=== PATIENT | male | born 1945 | race Hispanic/Latino ===

== ENCOUNTER → 2023-07-05 | Outpatient (CLI) | payer OTHER | END | disposition home or self-care (01) | LOC: RAH 12:44 | PROVIDERS: ATTEND Family Medicine | DX: R13.10 Dysphagia, unspecified (principal) | CPT/HCPCS: 74230; 92610; 92611 ==

== ENCOUNTER 2024-09-15 08:13 | Inpatient (IN) | payer OTHER, MEDICARE ==
[2024-09-12 14:48] LABS: BASOPHILS # (AUTO) 0.02 K/uL (0.00-0.20); BASOPHILS % (AUTO) 0.4 % (0.0-5.0); EOSINOPHILS # (AUTO) 0.06 K/uL (0.00-0.70); EOSINOPHILS % (AUTO) 1.1 % (0.0-8.0); HEMATOCRIT 37.1 % (42-54); IMMATURE GRANULOCYTE ABSOLUTE 0.01 K/uL (0-1); LYMPHOCYTES # (AUTO) 1.6 K/uL (1.0-4.8); MEAN CORPUSCULAR HEMOGLOBIN 30.3 pg (27.0-33.0); MEAN CORPUSCULAR HGB CONC 32.9 g/dL (32.0-36.0); MEAN CORPUSCULAR VOLUME 92.3 fL (79-99); MONOCYTES # (AUTO) 0.5 K/uL (0.1-1.0); MONOCYTES % (AUTO) 9.5 % (3.0-13.0); NEUTROPHILS # (AUTO) 3.3 K/uL (1.8-7.7); NEUTROPHILS % (AUTO) 59.8 % (40.0-77.0); PLATELET COUNT (AUTO) 158 K/uL (130-400); RED BLOOD CELL COUNT(AUTO) 4.02 MIL/uL (4.50-6.20); RED CELL DISTRIBUTION WIDTH 13.6 % (11.0-15.5); WHITE BLOOD COUNT (AUTO) 5.6 K/uL (4.8-10.8)
[2024-09-12 14:51] LABS: APPEARANCE,URINE CLEAR (CLEAR); BILIRUBIN,URINE NEGATIVE (NEGATIVE); COLOR,URINE LIGHT-YELLOW (YELLOW); GLUCOSE, URINE (UA) NEGATIVE (NEGATIVE); KETONES,URINE NEGATIVE (NEGATIVE); LEUKOCYTE ESTERASE ,URINE NEGATIVE Leu/uL (NEGATIVE); NITRATE,URINE NEGATIVE (NEGATIVE); OCCULT BLOOD,URINE NEGATIVE (NEGATIVE); PH,URINE 5.5 (5.0-8.0); PROTEIN,URINE NEGATIVE (NEGATIVE); UROBILINOGEN,URINE 0.2 mg/dL (0.2-1.0)
[2024-09-12 14:54] VITALS: BP 171/72; PULSE 68; RESP 18; TEMP 98.4
[2024-09-12 14:56] LABS: ADD UA MICROSCOPIC YES
[2024-09-12 15:05] LABS: MUCUS,URINE RARE LPF (None Seen); RBC,URINE 0-1 /HPF (0-1); SQUAMOUS EPITHELIAL CELL,UR RARE /HPF (0-2); WBC,URINE 0-1 /HPF (0-1)
[2024-09-12 15:10] LABS: B-TYPE NATRIURETIC PEPTIDE 171 pg/mL (0-100)
[2024-09-12 15:30] LABS: CREATININE 1.6 mg/dL (0.5-1.3); INR 1.04 (0.85-1.15); POTASSIUM 5.2 mmol/L (3.5-5.1)
[2024-09-12 15:31] LABS: PARTIAL THROMBOPLASTIN TIME 29.1 SEC (26.3-35.5)
--- NOTE | 2024-09-12 15:36 | HMCIMG ---
Exam Type: CHEST 1VW Clinical Information: PRE OP Comparison: None Findings: The lungs are clear of infiltrates. The heart is normal in size. The bony and soft tissue structures of the chest are unremarkable. Impression: Clear lungs.
--- NOTE | 2024-09-12 16:40 | NUR ---
RE: LABS REPORTED BMP RESULTS TO ALEXANDER BRENNER NP. RECEIVED ORDERS TO HAVE PATIENT STOP LISINOPRIL AND CALL IN RX FOR NORVASC 5MG PO DAILY AND CLONIDINE 0.1MG PO PRN SBP >170. HOWEVER, PATIENT'S PHARMACY IS [facility] AND IT IS CLOSED AT THIS TIME, ALSO PATIENT WAS CALLED MULTIPLE TIMES AND DOES NOT ANSWER HIS PHONE. INFORMED ALEXANDER BRENNER AND RECEIVED ORDERS TO JUST REPEAT BMP ON DAY OF PROCEDURE.
--- NOTE | 2024-09-12 18:27 | EKG ---
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
[2024-09-15] VITALS (13 sets, daily range): BP systolic 140–156; BP diastolic 60–80; PULSE 59–83; RESP 13–18; TEMP 97.9–98.7; O2SAT 98–100
[~2024-09-15] VITALS: Ht 172.7 cm; Wt 63.5 kg
[~2024-09-15 08:13] MED LIST: ASPI-1443 PO; ISOS30TA92 PO; LISI20TA24 PO; METO-391 PO; ROSU40TA88 PO
[2024-09-15 08:50] LABS: CREATININE 1.2 mg/dL (0.5-1.3); POTASSIUM 4.2 mmol/L (3.5-5.1)
[2024-09-15] MEDS: 0.9%NACL 1000ML 1,000 ML IV SCH ×2 (09:27→17:44)
[2024-09-15] MEDS ORDERED: LIDOCAINE HCL 400MG/20ML VIAL ONE (13:12)
[2024-09-15] MEDS ORDERED: NITROGLYCERIN 50MG VIAL ONE (13:13)
[2024-09-15] MEDS ORDERED: SODIUM BICARB 50MEQ 50ML VIAL 50 ML ONE (13:13)
[2024-09-15] MEDS ORDERED: HEParin 10,000 UNIT/10ML (1,000 UNIT/ML) VIAL ONE (13:13)
[2024-09-15] MEDS ORDERED: IOHEXOL 350 MG/ML 100ML INFUS..BTL IV ONE (13:13)
[2024-09-15] MEDS ORDERED: HEParin-NS 1,000 UNIT/500 ML 1,000 ML IV ONE (13:13)
[2024-09-15] MEDS ORDERED: MIDAZOLAM HCL 1 MG/ML 2ML VIAL ONE (13:32)
[2024-09-15] MEDS ORDERED: FENTanyl CITRate PF 50 MCG/1 ML 2ML VIAL ONE (13:32)
[2024-09-15] MEDS ORDERED: NITROGLYCERIN 4.9GM SPRAY 60 SPRAY/BOT SPRY TL ONE (14:38)
--- NOTE | 2024-09-15 16:00 | CCATH ---
PROCEDURES: * Left heart catheterization. * Selective right and left coronary arteriogram. * Selective right and left common carotid artery angiogram. * Selective brachiocephalic artery angiogram. * Selective left subclavian arteriogram. * Subselective right and left vertebral artery angiogram. INDICATIONS: * Known history of coronary artery disease. * Status post remote coronary artery stenting x 2. * Recurrent angina at a low level of activity. * Severe carotid stenosis by noninvasive studies. COMPLICATIONS: None. TOTAL CONTRAST: 110 mL. DESCRIPTION OF PROCEDURE: The patient was taken to the cardiac catheterization lab after appropriate operative consents were signed. He was prepped and draped in the usual fashion. After conscious sedation was administered, the right common femoral artery region was infiltrated with 2% Xylocaine without epinephrine. A 6-Cuban sheath was advanced in a retrograde fashion by the modified Seldinger technique. An FL4 6-Cuban catheter was advanced and selectively engaged the ostium of the left main. Imaging was obtained in multiplane. The left main appeared to have a 40%-50% ostial lesion, more appreciated in the [place] views than the [place] views. The left main trifurcated into an LAD, a large intermediate, and a circumflex. The LAD was a moderately large vessel that gave rise to several small diagonals. The first diagonal had an ostial 80% stenotic lesion. The ostial LAD had a 70% lesion best seen in the [place] caudal and [place] caudal views and it was somewhat hazy. The mid LAD had a stent in it that had a 50% in-stent restenosis. Distal to the stent, there was an 80% stenotic lesion, and at the apical LAD, there was a 95% stenotic lesion. The intermediate vessel was a large vessel that had tandem 80%-90% stenotic lesion in the ostial to proximal and in the mid segment. The circumflex was a moderately sized vessel that gave rise to a branching obtuse marginal branch and an ongoing circumflex with a distal small graft. The proximal portion of the circumflex had a 30% stenotic lesion. The OM1 had an 80% lesion, however, apparently had been a branching obtuse marginal 1 with the inferior branch being chronically occluded and appeared to fill retrograde from the superior branch of the OM. This was the larger of the two vessels. It was noted that the distal RCA circulation was being supplied retrograde by circumflex collaterals to a PDA and a small PLVB. At this point, the catheter was withdrawn. An FR4 6-Cuban catheter was advanced selectively against the ostium of the right coronary artery. The right coronary artery ostium was slightly aberrant arising superior to the usual location. The RCA was a moderately sized vessel that had critical stenosis in the proximal to mid segments with tandem 99% lesions. The distal RCA had a 90% lesion before bifurcating into the PDA and PLVB. The PDA was underperfused and had a proximal 80% stenotic lesion. The PLVB was tiny. The right coronary artery catheter was placed in the left ventricular cavity. Left ventricular end-diastolic pressure measurement was obtained. Ventriculography was deferred to conserve contrast. Pullback revealed no aortic stenosis. At this point, we utilized the right coronary diagnostic catheter, which was engaged in the brachiocephalic artery. This was imaged in multiplane identifying a patent brachiocephalic artery, a patent common carotid, and a patent vertebral; however, the vertebral had a proximal stenotic lesion rated at 80% on the right. The catheter was then engaged in the left subclavian artery. This was imaged in multiplane, identifying a patent left subclavian artery, a patent left vertebral, and a left subclavian distal to the vertebral. The vertebral artery was tortuous and had multiple kink lesions, but no flow-limiting stenotic lesions were identified. At this point, it was evident that the patient had a bovine orientation of the great vessels. We were able to cannulate the left common carotid artery with a Moody 2 Sidewinder catheter, which was engaged in the main body of the left common carotid artery. Imaging was obtained in multiplane, identifying a patent left common carotid artery that bifurcated into the left external and left internal. The left internal carotid artery had an ostial 70% stenotic lesion. The intracerebral circulation was normal. The right coronary catheter was then utilized to engage in the right common carotid artery, which was imaged in multiplane, identifying a patent right common carotid artery, internal carotid artery, and normal intracerebral circulation. At this point, the procedure was completed, Perclose was utilized with good hemostasis. The patient tolerated well, left the cardiac catheterization lab in stable condition. FINAL IMPRESSION: * Severe three-vessel coronary artery disease. * Recurrent angina despite optimal medical management. * Significant right carotid and right vertebral artery stenosis. PLAN: Consultation with Cardiothoracic Surgery for a surgical opinion. TID: [id number] RECEIPT: [id number]
--- NOTE | 2024-09-15 17:05 | NUR ---
[facility] REPORT GIVEN TO JANIE MORALES AT THIS TIME. UPDATED ON PATIENT STATUS, INFORMED PENDING DR. AMARO TO ENTER ORDERS. PATIENT TRANSFERRED TO ROOM 232 AT THIS TIME. RIGHT FEMORAL SITE SOFT, NON-TENDER, MINIMAL OOZING OUTLINED.
--- NOTE | 2024-09-15 19:20 | HMCIMG ---
US CAROTID DUPLEX HISTORY: Preop CABG COMPARISON: None TECHNIQUE: Duplex carotid arterial Doppler ultrasound study was performed. FINDINGS: The common, internal and external carotid arteries are visualized. The peak systolic velocities of right common carotid artery is 95 centimeters per second, right internal carotid artery is 74 centimeters per second, right external carotid artery is 75 centimeters per second, and right vertebral artery is 37 centimeters per second. Right internal carotid artery to right common carotid artery ratio is 0.8. Right vertebral artery is seen with antegrade flow. The peak systolic velocities of left common carotid artery is 67 centimeters per second, left internal carotid artery is 252 centimeters per second, left external carotid artery is 74 centimeters per second, and left vertebral artery is 124 centimeters per second. Left internal carotid artery to left common carotid artery ratio is 3.8. Left vertebral artery is seen with antegrade flow. There are bilateral echogenic plaques. IMPRESSION: 1. Greater than 70% stenosis is seen of the left internal carotid artery.
[2024-09-15] MEDS: atorVAStatin 40 MG TABLET PO SCH (21:55)
[2024-09-15] MEDS: metOPROLol sucCINATE 50 MG TAB.SR.24H PO SCH (21:55)
--- NOTE | 2024-09-15 22:22 | CONS ---
SUBJECTIVE: The patient is a 78-year-old male with a history of coronary artery disease (previous stenting of the left anterior descending artery and obtuse marginal coronary artery), the patient also has been noted to have a left carotid artery stenosis and presented today for an elective angiogram of not only his carotid arteries but his coronary arteries. His carotid artery on the left side showed a 70% stenosis. His coronary angiogram, however, revealed multivessel coronary artery disease, and therefore, Cardiovascular Surgery was consulted for possible surgical revascularization. PHYSICAL EXAMINATION: GENERAL: On exam, the patient is a pleasant elderly male, accompanied by his daughter. VITAL SIGNS: Reveal a pulse of 63, blood pressure 147/58, his respirations are 11, oxygen saturation 99% on room air. HEENT: Exam reveals normocephalic, atraumatic. Extraocular movements intact. NECK: He has a mild bruit on his left neck. HEART: S1, S2 and regular. LUNGS: Unlabored at rest. ABDOMEN: Reveals positive bowel sounds. ASSESSMENT AND PLAN: Multivessel coronary artery disease. Recommend surgical revascularization in the operating room. Risks of , stroke, bleeding, infection, arrhythmias, etc. were all discussed with the patient in the presence of his daughter. All questions were answered. He understands and wishes to proceed. TID: [id number] RECEIPT: [id number]
[2024-09-16] VITALS (9 sets, daily range): BP systolic 121–190; BP diastolic 68–102; PULSE 55–102; RESP 10–20; TEMP 97.7–98.9; O2SAT 98
[2024-09-16 03:49] LABS: HEMATOCRIT 34.8 % (42-54); MEAN CORPUSCULAR HEMOGLOBIN 30.4 pg (27.0-33.0); MEAN CORPUSCULAR HGB CONC 33.6 g/dL (32.0-36.0); MEAN CORPUSCULAR VOLUME 90.4 fL (79-99); RED BLOOD CELL COUNT(AUTO) 3.85 MIL/uL (4.50-6.20); RED CELL DISTRIBUTION WIDTH 13.8 % (11.0-15.5); WHITE BLOOD COUNT (AUTO) 6.9 K/uL (4.8-10.8)
[2024-09-16 04:01] LABS: INR 1.08 (0.85-1.15); PROTHROMBIN TIME 11.4 SEC (9.6-11.6)
[2024-09-16 04:02] LABS: PARTIAL THROMBOPLASTIN TIME 29.6 SEC (26.3-35.5)
[2024-09-16 04:05] LABS: ALBUMIN 3.1 g/dL (3.5-5.0); CREATININE 1.3 mg/dL (0.5-1.3); POTASSIUM 3.9 mmol/L (3.5-5.1); TOTAL PROTEIN, SERUM 6.6 g/dL (6.0-8.3)
[2024-09-16 04:11] LABS: HEMOGLOBIN A1C 5.6 % (4.0-6.0)
--- NOTE | 2024-09-16 07:38 | EKG ---
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
--- NOTE | 2024-09-16 08:55 | NUR ---
[facility]. Patient came in for an elective LHC and now on scheduled for CABG. CM to follow for any discharge needs.
[2024-09-16] MEDS: LISINOPRIL 20 MG TABLET PO SCH (09:00)
[2024-09-16] MEDS: ASPIRIN 81 MG EC TAB PO SCH (09:00)
[2024-09-16] MEDS: ISOSORBIDE MONO 30MG SR TAB PO SCH (09:00)
--- NOTE | 2024-09-16 09:08 | HMCIMG ---
CHEST 1VW HISTORY: Preop COMPARISON: 09/12/2024 FINDINGS: A frontal projection of the chest was obtained. No acute pulmonary infiltrates is seen. The heart is normal in size. Degenerative changes are seen. Prominent interstitial markings are seen. No evidence of aortic calcification is seen. IMPRESSION: 1. No acute pulmonary infiltrate is seen.
--- NOTE | 2024-09-16 10:55 | HP ---
[facility] HISTORY & PHYSICAL Date Patient Seen: Sep 16, 2024 Time of Visit: 11:42 Supervising Physician: [Dr. Oneill] Primary Care Physician: [] Outpatient Specialists: [ ] Inpatient Consults: [SHC, CTS] PROBLEM LIST: Coronary artery disease, s/p remote stenting, pending CABG Carotid artery stenosis, pending outpatient intervention Vertebral artery stenosis JULIA on admission, resolved Chronic diastolic heart failure Hyperkalemia, resolved Anemia of chronic disease Plan: Continue medical management including aspirin and statin Pending CABG today Follow cardiology recommendation regarding carotid stenosis Repeat labs in AM HPI: [This is a 78-year-old male with a history of CAD status post remote stenting, in 2014 and 2016 who presents to the ED for elective coronary angiogram. He underwent LHC yesterday and was found to have triple-vessel disease. CTS was consulted for the same inpatient is pending CABG today. His labs reveal mild JULIA with creatinine of 1.6 on admission now improved to 1.3. BNP mildly elevated at 250. CXR is within normal limits. Patient continues on medical management including aspirin and statin.] PAST MEDICAL HX: see above PAST SURGICAL HX: noncontributory SOCIAL HISTORY: No tobacco, ETOH, or illicit drug use Coded Allergies: No Known Drug Allergies (Unverified Allergy, Unknown, 09/12/24) REVIEW OF SYSTEMS: 12 point ROS reviewed with patient. Pertinent positives mentioned above. Otherwise negative. PHYSICAL EXAM: GENERAL: alert, weak, awake oriented x 3 HEENT: EOMI, Sclera non icteric, moist mucosa NECK: Supple, no JVD, trachea midline LUNGS: Clear breath sounds bilaterally. No wheezes HEART: Regular rate and rhythm. Normal S1 and S2, without murmurs ABD: Abdomen soft, nontender. Bowel sounds present EXT: No clubbing cyanosis or edema NEURO: Alert and oriented to person, follows commands Vital Signs (last 8hr) Date Time Temp Pulse Resp B/P (MAP) Pulse Ox O2 Delivery O2 Flow Rate FiO2 09/16/24 08:00 98.4 56 20 147/68 98 Room Air 09/16/24 04:00 98.2 59 18 134/72 99 Room Air LABS: Hematology Labs: Test 09/16/24 03:34 Range/Units White Blood Count 6.9 4.8-10.8 K/uL Red Blood Count 3.85 L 4.50-6.20 MIL/uL Hemoglobin 11.7 L 14.0-18.0 g/dL Hematocrit 34.8 L 42-54 % Mean Corpuscular Volume 90.4 79-99 fL Mean Corpuscular Hemoglobin 30.4 27.0-33.0 pg Mean Corpuscular Hemoglobin Concent 33.6 32.0-36.0 g/dL Red Cell Distribution Width 13.8 11.0-15.5 % Platelet Count 138 130-400 K/uL Mean Platelet Volume 9.7 7.5-10.5 fL Nucleated Red Blood Cells 0.0 0.0-0.19 % Chemistry Labs: Test 09/16/24 03:34 Range/Units Sodium Level 136 136-145 mmol/L Potassium Level 3.9 3.5-5.1 mmol/L Chloride Level 103 101-111 mmol/L Carbon Dioxide Level 29 21-32 mmol/L Blood Urea Nitrogen 16 7-18 mg/dL Creatinine 1.3 0.5-1.3 mg/dL Glomerular Filtration Rate Calc 56 >90 mL/min Random Glucose 105 70-105 mg/dL Hemoglobin A1c 5.6 4.0-6.0 % Estimated Average Glucose (eAG) 114 70-126 mg/dL Total Calcium 8.5 8.5-10.1 mg/dL Total Bilirubin 1.0 0.2-1.0 mg/dL Aspartate Amino Transf (AST/SGOT) 16 10-37 U/L Alanine Aminotransferase (ALT/SGPT) 13 12-78 U/L Alkaline Phosphatase 87 50-136 U/L B-Type Natriuretic Peptide 250 H 0-100 pg/mL Total Protein 6.6 6.0-8.3 g/dL Albumin 3.1 L 3.5-5.0 g/dL Triglycerides Level 174 30-200 mg/dL Cholesterol Level 152 <200 mg/dL LDL Cholesterol 90 0-99 mg/dL HDL Cholesterol 41 29-71 mg/dL Coagulation Labs: Test 09/16/24 03:34 Range/Units Prothrombin Time 11.4 9.6-11.6 SEC Prothromb Time International Ratio 1.08 0.85-1.15 Activated Partial Thromboplast Time 29.6 26.3-35.5 SEC DIAGNOSTICS / RADIOLOGY RESULTS: [Reviewed. pending echo] PLAN NEURO: Minimize central acting medications as possible. Maintain fall precautions, adequate lighting during the day PULMONARY: Supplemental 02 as needed. Maintain aspiration precautions at all times CARDIOVASCULAR: Follow hemodynamics. Vital signs per facility protocol GI & NUTRITION: Continue with nutritional support. Continue stool softeners and laxatives as needed. KIDNEYS & ELECTROLYTES: Strict monitoring of intake, output and overall fluid balance. Avoid nephrotoxic medications to the extent possible. Medications to be dosed according to renal function. Monitor electrolytes and replace as needed ENDOCRINE: Maintain blood glucose between 100-180 at all times. Hypoglycemia protocol in place INFECTIOUS DISEASE: Trend temperature, WBC and procalcitonin level Follow cultures, deescalate antibiotics as soon as possible. Panculture if new onset fever ONCOLOGY/HEMATOLOGY/COAGULATION: Monitor for s/s of bleeding Monitor hemoglobin, coagulation studies as needed SKIN: Pressure ulcer prevention per facility protocol Specialty mattress ORTHO/REHAB: Continue PT/OT Prophylaxis: Continue GI and DVT prophylaxis Code Status: Full Resuscitation Disposition: TBD Other: Total patient care time exceeds 35 minutes excluding all procedures. STEPHANIE MATOS Sep 16, 2024 10:55
--- NOTE | 2024-09-16 12:50 | NUR ---
Order received for Pre-op sternal training. Sternal training completed with good verbal understanding of post op precautions and procedures. Nursing notified. Addendum: 09/16/24 at 1324 by SANAM GARCIA, PT PT Amended: Links added.
[2024-09-16] MEDS ORDERED: aminoCAProic ACID 5,000MG VIAL 15,000 MG in 0.9% NACL 500ML IV.SOLN 420 ML IV PRN (14:00)
[2024-09-16] MEDS ORDERED: NITROGLYCERIN 50MG/D5W 250ML 1 BOT ONE (14:00)
[2024-09-16] MEDS ORDERED: NOREPINEPHRIN 8MG/250ML NS 250 ML IV PRN (14:00)
[2024-09-16] MEDS ORDERED: EPINEPHrine PF 1MG (1:1,000) 10 MG in 0.9% NACL 250ML 240 ML IV PRN ×2 (14:00→21:30)
[2024-09-16] MEDS ORDERED: LIDOCAINE 2G/250ML 250 ML IV ONE (14:01)
--- NOTE | 2024-09-16 18:00 | NUR ---
PATIENT OFF THE FLOOR FOR CABG
[2024-09-16] MEDS ORDERED: EPINEPHrine PF 1MG (1:1,000) 1 MG/ML AMP ONE (19:24)
[2024-09-16] MEDS ORDERED: PROTamine SULFate 10 MG/ML 25ML VIAL IV ONE (19:24)
[2024-09-16] MEDS ORDERED: HEParin 10,000 UNIT/10ML (1,000 UNIT/ML) VIAL ONE (19:24)
[2024-09-16] MEDS ORDERED: LIDOCAINE PF 100MG/5ML (2%) SYRINGE 5ML ONE (19:24)
[2024-09-16] MEDS ORDERED: NOREPINEPHRINE BITARTRATE 1 MG/1 ML ML IV ONE (19:24)
[2024-09-16] MEDS ORDERED: SODIUM BICARB 50MEQ 50ML VIAL 200 ML ONE (19:24)
[2024-09-16] MEDS ORDERED: proPOFol 10 MG/ML 20ML VIAL IV ONE (19:24)
[2024-09-16] MEDS ORDERED: FENTanyl CITRate PF 50 MCG/1 ML 20ML VIAL IJ ONE (19:25)
[2024-09-16] MEDS ORDERED: rocuRONium bROMide 10MG/1ML 5ML VL ONE (19:25)
[2024-09-16] MEDS ORDERED: HEParin-NS 1,000 UNIT/500 ML 500 ML IV ONE (19:32)
[2024-09-16] MEDS ORDERED: ceFAZolin SODIUM 1 GM VIAL ONE (19:32)
[2024-09-16] MEDS ORDERED: PAPAVERINE HCL 30 MG/ML 2ML VIAL ONE (19:33)
[2024-09-16] MEDS: ceFAZolin SODIUM 2 GM VIAL IVPB ONE (19:50)
[2024-09-16 20:13] LABS: ABG BASE EXCESS -2.1 mmol/L (-2.0-3.0); ABG HCO3 22.8 mmol/L (21.0-28.0); ABG OXYGEN SATURATION 99.8 % (94.0-98.0); ABG PCO2 40 mmHg (35-48); ABG PH 7.377 (7.350-7.450); CARBON MONOXIDE 0.3 % (0.5-1.5); DEVICE COMMENT 1; HHb 0.2; PO2, ARTERIAL BG > 500.0 mmHg (83.0-108.0)
[2024-09-16] MEDS ORDERED: AMIOdarone 150MG VIAL ONE (20:29)
[2024-09-16 20:42] LABS: ABG BASE EXCESS 2.8 mmol/L (-2.0-3.0); ABG HCO3 28.1 mmol/L (21.0-28.0); ABG OXYGEN SATURATION 99.5 % (94.0-98.0); ABG PCO2 46 mmHg (35-48); ABG PH 7.402 (7.350-7.450); CARBON MONOXIDE 0.3 % (0.5-1.5); DEVICE COMMENT 2; HHb 0.5; PO2, ARTERIAL BG > 500.0 mmHg (83.0-108.0)
[2024-09-16] MEDS ORDERED: SODIUM BICARB 50MEQ 50ML VIAL 250 ML ONE (20:49)
[2024-09-16] MEDS ORDERED: MAGNESIUM SULFATE 1 GM/2 ML VIAL ONE (20:50)
[2024-09-16] MEDS ORDERED: dexmedeTOMIDine 400MCG/NS100ML IV SCH (21:30)
[2024-09-16] MEDS ORDERED: NOREPINEPHRINE BITARTRATE 8 MG in DEXTROSE 5%-WATER 250 ML IV PRN (21:30)
[2024-09-16] MEDS ORDERED: CALCIUM GLUC 1GM 1 GM in 0.9%NACL 50ML 50 ML IV PRN (21:30)
[2024-09-16] MEDS ORDERED: morPHINE 2 MG SYG IV PRN ×2 (21:30→22:00)
[2024-09-16] MEDS ORDERED: 0.9%NACL 10ML VIAL IVP PRN (21:30)
[2024-09-16] MEDS ORDERED: MAGNESIUM HYDROXIDE 30 ML/UDCUP PO PRN (21:30)
[2024-09-16] MEDS ORDERED: DEXTROSE 50%-WATER 50 ML DISP.SYRIN IV PRN (21:30)
[2024-09-16] MEDS ORDERED: aminoCAProic ACID 5,000MG VIAL 15,000 MG in 0.9% NACL 250ML 250 ML IV SCH (21:30)
[2024-09-16] MEDS ORDERED: acetaMINOPHEN 650 MG SUPPOSITORY RC PRN (21:30)
[2024-09-16] MEDS ORDERED: acetaMINOPHEN 325 MG TAB PO PRN (21:30)
[2024-09-16] MEDS ORDERED: GLUCAGON 1MG KIT 1 MG ML IM PRN (21:30)
[2024-09-16] MEDS ORDERED: 0.9% NACL 500ML IV.SOLN 500 ML IV SCH (21:30)
[2024-09-16] MEDS ORDERED: proPOFol 1000 MG/100 ML 100 ML IV PRN (21:30)
[2024-09-16] MEDS ORDERED: traMADol HCL 50 MG TABLET PO PRN ×2 (21:30)
[2024-09-16 21:34] LABS: ABG BASE EXCESS 4.7 mmol/L (-2.0-3.0); ABG HCO3 27.1 mmol/L (21.0-28.0); ABG OXYGEN SATURATION 99.3 % (94.0-98.0); ABG PCO2 32 mmHg (35-48); ABG PH 7.541 (7.350-7.450); CARBON MONOXIDE 0.3 % (0.5-1.5); DEVICE COMMENT 3; HHb 0.7; PO2, ARTERIAL BG > 500.0 mmHg (83.0-108.0)
[2024-09-16] MEDS ORDERED: ALBUMIN (HUMAN) 5% 500 ML IV ONE (22:02)
[2024-09-16] MEDS ORDERED: VASOpressin 20 UNITS/ML 1ML VIAL ONE (22:07)
[2024-09-16 22:24] LABS: ABG BASE EXCESS 0.5 mmol/L (-2.0-3.0); ABG HCO3 23.1 mmol/L (21.0-28.0); ABG OXYGEN SATURATION 99.3 % (94.0-98.0); ABG PCO2 29 mmHg (35-48); ABG PH 7.517 (7.350-7.450); CARBON MONOXIDE 0.3 % (0.5-1.5); DEVICE COMMENT 5; HHb 0.7; PO2, ARTERIAL BG > 500.0 mmHg (83.0-108.0)
[2024-09-16 23:20] LABS: ABG BASE EXCESS -0.9 mmol/L (-2.0-3.0); ABG HCO3 22.4 mmol/L (21.0-28.0); ABG OXYGEN SATURATION 98.8 % (94.0-98.0); ABG PCO2 32 mmHg (35-48); ABG PH 7.467 (7.350-7.450); CARBON MONOXIDE 0.3 % (0.5-1.5); HHb 1.2; VENT MODE, BG SIMV PS 10 (ROOM AIR)
[2024-09-16 23:21] LABS: HEMATOCRIT 25.3 % (42-54); MEAN CORPUSCULAR HEMOGLOBIN 30.5 pg (27.0-33.0); MEAN CORPUSCULAR VOLUME 89.7 fL (79-99); RED BLOOD CELL COUNT(AUTO) 2.82 MIL/uL (4.50-6.20); RED CELL DISTRIBUTION WIDTH 13.4 % (11.0-15.5); WHITE BLOOD COUNT (AUTO) 10.8 K/uL (4.8-10.8)
[2024-09-16 23:35] LABS: MAGNESIUM 1.3 mg/dL (1.80-2.40); PHOSPHORUS 3.9 mg/dL (2.5-4.9); POTASSIUM 4.3 mmol/L (3.5-5.1)
[2024-09-16 23:40] LABS: INR 1.38 (0.85-1.15); PROTHROMBIN TIME 14.2 SEC (9.6-11.6)
[2024-09-16 23:42] LABS: PARTIAL THROMBOPLASTIN TIME 28.7 SEC (26.3-35.5)
[2024-09-16] MEDS: acetaMINOPHEN 1,000 MG/100 ML VIAL IV SCH (23:44)
[2024-09-16] MEDS: ASPIRIN 81MG CHEW TAB NG ONE (23:45)
[2024-09-16] MEDS: 0.9%NACL 1000ML 1,000 ML IV SCH (23:45)
--- NOTE | 2024-09-16 23:56 | OP ---
DATE OF PROCEDURE: 09/16/2024 PREOPERATIVE DIAGNOSIS: Coronary artery disease. POSTOPERATIVE DIAGNOSIS: Coronary artery disease. PROCEDURES PERFORMED: * Off-pump coronary artery bypass grafting x 4 vessel (left internal mammary to the LAD, reverse saphenous vein graft from the aorta to the first diagonal coronary artery, reverse saphenous vein graft from the aorta to the ramus coronary artery, reverse saphenous vein graft from the aorta to the posterior descending artery). * Rigid sternal fixation with MITCH sternal plating system. OPERATING SURGEON: Kong Selby MD STAMPING OPERATOR: Yi Shi ANESTHESIOLOGIST: Dr. Kinney. TYPE OF ANESTHESIA: Endotracheal anesthesia. BRIEF HISTORY: The patient is a 78-year-old male with a history of hypertension, hyperlipidemia, diabetes mellitus, and known coronary artery disease, having had 2 previous coronary artery stents placed in the past. The patient was being worked up for a left internal carotid artery stenosis and underwent a carotid angiogram which revealed a 70% left internal carotid artery stenosis and a coronary angiogram which revealed three-system coronary artery disease. His ejection fraction was normal and he presents now for surgical revascularization. FINDINGS: The patient had a good-sized left anterior descending artery, ramus coronary artery and diagonal coronary artery. The posterior descending artery was somewhat diseased and small to moderate in size. Its conduits were of good size and his left ventricular function was adequate. His second obtuse marginal coronary artery was a bifurcated vessel, which is diseased up to its bifurcation. The most medial branch was too small to graft. DESCRIPTION OF PROCEDURE: The patient was brought to the Operating Room and placed on the operating room table in the supine position. He was given general endotracheal anesthesia. After placing lines and catheters, his chest, abdomen, and legs were prepped and draped in the usual sterile fashion. His left greater saphenous vein was harvested endoscopically and simultaneously a median sternotomy was performed and the left internal mammary artery was taken down. The patient was given 15,000 units of IV heparin. The left internal mammary artery was clamped with Bulldog proximally and divided distally. The pericardium was opened in the midline and the LAD was stabilized with an Acrobat epicardial retractor in its distal third. A 5-0 Prolene snare was placed proximal to the target site, which was just distal to the LAD stent. The distal end of the left internal mammary artery was then anastomosed to the side of the LAD over a 1-mm shunt using a running 7-0 Prolene suture. Its pedicle was tacked to the epicardium with two 6-0 Prolene sutures. Bulldog clamp and snares were released. The LAD was reperfused for the remainder of the procedure. The next target was the ramus coronary artery. This was grafted near the AV groove. This received the distal end of the reverse saphenous vein graft. An end-to-side anastomosis was performed over a 1-mm shunt using a running 7-0 Prolene suture and this vein graft was draped under the left internal mammary artery and cut to the appropriate length of each aorta. The next target was the first diagonal coronary artery. This received the distal end of the second segment of the reverse saphenous vein graft. An end-to-side anastomosis was performed over a 1 mm shunt using a running 7-0 Prolene suture and this vein graft was also draped under the left internal mammary artery and cut to appropriate length of each aorta. The final target was the posterior descending artery. This received the distal end of the third, second and first saphenous vein graft. An end-to-side anastomosis was performed over a 1-mm shunt using a running 7-0 Prolene suture and this vein graft was draped along the right side of the heart and cut to appropriate length of each aorta. Partial occlusion clamp was placed on the ascending aorta and three 4.0-mm arteriotomy holes were made in the proximal ends of the vein graft to anastomose the side of the aorta using running 6-0 Prolene sutures. The vein grafts were di-aired and partial occlusion clamp removed and all 3 systems were revascularized. The patient was given protamine. Mediastinum and left chest were drained with 24-[place]ian Rboy drains and secured to skin with silk sutures. The pericardium was loosely approximated over the heart and graft with several separate Ethibond sutures. The sternum was reapproximated with a combination of stainless steel wires from the MITCH sternal plating system. In the presternal fashion, the subcutaneous sutures were closed with running layers of Vicryl suture. The skin was closed using a running intracuticular Monocryl stitch. The wounds were cleaned and dried. The toe was bandaged and the patient was undraped and intubated to the ICU in critical but stable condition. TID: [id number] RECEIPT: [id number] cc: , Ирина Mcgovern II MD(User)
[2024-09-17] VITALS (107 sets, daily range): BP systolic 83–167; BP diastolic 35–93; PULSE 75–101; RESP 6–27; TEMP 97–98.6; O2SAT 96–100
[2024-09-17] MEDS: MAGNESIUM 2GM PREMIX 50ML 50 ML IV PRN (00:01)
--- NOTE | 2024-09-17 00:15 | HMCIMG ---
CHEST 1VW HISTORY: Post CABG COMPARISON: Same date x-ray FINDINGS: A frontal projection of the chest was obtained. No acute pulmonary infiltrates is seen. Poststernotomy changes are seen. The heart is enlarged. Degenerative changes of the thoracolumbar spine are present. All the lines and tubes are again seen in place. No evidence of aortic calcification is seen. IMPRESSION: 1. No acute pulmonary infiltrate is seen.
[2024-09-17 00:23] LABS: ABG BASE EXCESS -4.5 mmol/L (-2.0-3.0); ABG HCO3 19.5 mmol/L (21.0-28.0); ABG OXYGEN SATURATION 98.8 % (94.0-98.0); ABG PCO2 32 mmHg (35-48); ABG PH 7.405 (7.350-7.450); CARBON MONOXIDE 0.3 % (0.5-1.5); HHb 1.2; PO2, ARTERIAL BG 279.8 mmHg (83.0-108.0); VENT MODE, BG SIMV PS 10 (ROOM AIR)
[2024-09-17] MEDS: PoTASSium chloRIDE 20MEQ/100ML 100 ML IV PRN (00:33)
[2024-09-17] MEDS: SODIUM BICARB 50MEQ 50ML VIAL IV PRN (00:36)
[2024-09-17] MEDS: INSULIN REGULAR, HUMAN 3ML 100 UNIT in 0.9%NACL 100ML 99 ML IV SCH (00:50)
[2024-09-17] MEDS: NITROGLYCERIN 50MG/D5W 250ML 250 BOT IV SCH (00:52)
[2024-09-17 01:18] LABS: ABG BASE EXCESS 3.9 mmol/L (-2.0-3.0); ABG HCO3 27.9 mmol/L (21.0-28.0); ABG OXYGEN SATURATION 98.5 % (94.0-98.0); ABG PCO2 40 mmHg (35-48); ABG PH 7.467 (7.350-7.450); CARBON MONOXIDE 0.3 % (0.5-1.5); HHb 1.5; PO2, ARTERIAL BG 224.6 mmHg (83.0-108.0); VENT MODE, BG SIMV PS 10 (ROOM AIR)
[2024-09-17 02:19] LABS: ABG BASE EXCESS 1.6 mmol/L (-2.0-3.0); ABG HCO3 26.3 mmol/L (21.0-28.0); ABG PCO2 42 mmHg (35-48); ABG PH 7.418 (7.350-7.450); CARBON MONOXIDE 0.3 % (0.5-1.5); VENT MODE, BG SIMV PS 10 (ROOM AIR)
[2024-09-17] MEDS: ALBUMIN (HUMAN) 5% 250 ML IV PRN (02:56)
[2024-09-17 03:18] LABS: ABG BASE EXCESS 2.3 mmol/L (-2.0-3.0); ABG HCO3 27.3 mmol/L (21.0-28.0); ABG OXYGEN SATURATION 98.2 % (94.0-98.0); ABG PCO2 44 mmHg (35-48); CARBON MONOXIDE 0.3 % (0.5-1.5); DEVICE COMMENT JESSY RN,AL; HHb 1.8; PO2, ARTERIAL BG 157.3 mmHg (83.0-108.0); VENT MODE, BG SIMV PS 10 (ROOM AIR)
[2024-09-17] MEDS: ceFAZolin SODIUM 2 GM VIAL IVPB SCH (03:21)
--- NOTE | 2024-09-17 03:52 | NUR ---
CVR EXTUBATION PT EXTUBATED AT 0336 PER CVR VENTILATOR WEANING PROTOCOL. PT PLACED ON AEROSOL MASK 10L 40% FIO2. TOLERATED PROCEDURE WELL AND IN NO APPARENT DISTRESS. WILL CONTINUE TO MONITOR.
[2024-09-17 04:10] LABS: HEMATOCRIT 25.1 % (42-54); MEAN CORPUSCULAR HEMOGLOBIN 30.6 pg (27.0-33.0); MEAN CORPUSCULAR HGB CONC 33.9 g/dL (32.0-36.0); MEAN CORPUSCULAR VOLUME 90.3 fL (79-99); RED BLOOD CELL COUNT(AUTO) 2.78 MIL/uL (4.50-6.20); RED CELL DISTRIBUTION WIDTH 13.6 % (11.0-15.5); WHITE BLOOD COUNT (AUTO) 12.2 K/uL (4.8-10.8)
[2024-09-17 04:23] LABS: INR 1.28 (0.85-1.15); PROTHROMBIN TIME 13.2 SEC (9.6-11.6)
[2024-09-17 04:28] LABS: CREATININE 1.4 mg/dL (0.5-1.3); MAGNESIUM 2.4 mg/dL (1.80-2.40); PHOSPHORUS 1.7 mg/dL (2.5-4.9); POTASSIUM 4.3 mmol/L (3.5-5.1)
[2024-09-17] MEDS: poTASSium PHOS 15 mMOL+NS250ML 250 ML IV PRN (04:44)
[2024-09-17 04:50] LABS: ABG BASE EXCESS 1.4 mmol/L (-2.0-3.0); ABG HCO3 26.2 mmol/L (21.0-28.0); ABG PCO2 43 mmHg (35-48); ABG PH 7.407 (7.350-7.450); CARBON MONOXIDE 0.3 % (0.5-1.5); DEVICE COMMENT ALINE JESSERN; PO2, ARTERIAL BG 142.3 mmHg (83.0-108.0); VENT MODE, BG CAFM (ROOM AIR)
--- NOTE | 2024-09-17 08:07 | EKG ---
[facility] Test Date: 2024-09-16 Test Time: 23:11:23 Pat Name: JOEY PAEZ Department: 2CV Room: 209 Gender: M [employer]: sara : 1945 Requested By: TOMASA AMARO Order Number: [id number] Reading MD: Sushma Perez Measurements Intervals [place] Rate: 88 P: 52 AR: 167 QRS: 14 QRSD: 77 T: -36 QT: 348 QTc: 422 Interpretive Statements Sinus rhythm Low voltage, extremity leads Borderline ST depression, inferior leads Compared to ECG 09/16/2024 06:22:08 Low QRS voltage now present Myocardial infarct finding no longer present ST (T wave) deviation still present Electronically Signed On 09-18-2024 13:18:48 CDT by Sushma Perez Please click the below link to view image of tracing.
--- NOTE | 2024-09-17 09:20 | PN ---
[facility] PROGRESS NOTE Date Patient Seen: Sep 17, 2024 Time of Visit: 09:20 Supervising Physician: Dr. Oneill Primary Care Physician: [] Outpatient Specialists: [ ] Inpatient Consults: [SHC, CTS] PROBLEM LIST: Coronary artery disease, s/p remote stenting, pending CABG Carotid artery stenosis, pending outpatient intervention Vertebral artery stenosis JULIA on admission, resolved Chronic diastolic heart failure Hyperkalemia, resolved Anemia of chronic disease INTERVAL HISTORY: 09/17/2024: At the time of my evaluation, the patient was in staff nurse reports no events overnight. The patient is on Oxymizer and is noted elevated blood pressure readings data today showed a interval increase of WBCs 13.5, H&H 8.9/27.5 and a platelet count of 1 chemistry panel today was unremarkable. Currently, the patient remains on a Levophed, lidocaine, nitroglycerin and epinephrine drip. No new complaint REVIEW OF SYSTEMS: 12 point ROS reviewed with patient. Pertinent positives mentioned above. Otherwise negative. PHYSICAL EXAM: GENERAL: alert, weak, awake oriented x 3 HEENT: EOMI, Sclera non icteric, moist mucosa NECK: Supple, no JVD, trachea midline LUNGS: Clear breath sounds bilaterally. No wheezes HEART: Regular rate and rhythm. Normal S1 and S2, without murmurs ABD: Abdomen soft, nontender. Bowel sounds present EXT: No clubbing cyanosis or edema NEURO: Alert and oriented to person, follows commands Vital Signs (last 8hr) Date Time Temp Pulse Resp B/P (MAP) Pulse Ox O2 Delivery O2 Flow Rate FiO2 09/17/24 08:30 90 14 122/51 (74) 100 09/17/24 08:15 87 12 105/44 (64) 100 104/58 (73) 09/17/24 08:00 100 Aerosol Mask+ 10 40 09/17/24 08:00 98.4 09/17/24 08:00 98.4 87 12 100/42 (61) 100 09/17/24 07:45 87 12 112/47 (68) 78 115/67 (83) 09/17/24 07:30 90 12 108/45 (66) 95 09/17/24 07:15 91 12 116/47 (70) 99 112/69 (83) 09/17/24 07:00 90 12 120/49 (72) 93 09/17/24 06:45 91 14 115/49 (71) 99 09/17/24 06:37 90 18 Aerosol, Face Mask 10.0 40 09/17/24 06:00 97 13 116/49 (71) 100 09/17/24 05:45 94 9 114/46 (68) 100 118/67 (84) 09/17/24 05:30 94 14 111/46 (67) 100 09/17/24 05:15 98 16 100/47 (64) 100 147/57 (87) 09/17/24 05:00 92 14 119/50 (73) 100 09/17/24 04:45 94 14 117/50 (72) 100 115/66 (82) 09/17/24 04:30 91 7 115/50 (71) 100 09/17/24 04:15 96 11 134/57 (82) 100 112/68 (83) 09/17/24 04:00 98.4 97 15 138/58 (84) 100 09/17/24 04:00 100 Aerosol Mask+ 10 40 09/17/24 03:45 96 10 131/54 (79) 100 115/73 (87) 09/17/24 03:30 100 15 138/56 (83) 100 09/17/24 03:26 89 14 10.0 40 09/17/24 03:15 91 19 109/49 (69) 100 98/59 (72) 09/17/24 03:00 83 11 118/50 (72) 100 09/17/24 02:45 84 7 116/51 (72) 100 103/63 (76) 09/17/24 02:30 80 8 83/39 (54) 100 09/17/24 02:15 83 8 94/44 (61) 100 87/51 (63) 09/17/24 02:00 94 12 127/56 (79) 100 09/17/24 01:47 89 40 09/17/24 01:45 84 6 99/44 (62) 100 95/59 (71) 09/17/24 01:30 87 6 109/46 (67) 100 LABS: Hematology Labs: Test 09/17/24 03:50 Range/Units White Blood Count 12.2 H 4.8-10.8 K/uL Red Blood Count 2.78 L 4.50-6.20 MIL/uL Hemoglobin 8.5 L 14.0-18.0 g/dL Hematocrit 25.1 L 42-54 % Mean Corpuscular Volume 90.3 79-99 fL Mean Corpuscular Hemoglobin 30.6 27.0-33.0 pg Mean Corpuscular Hemoglobin Concent 33.9 32.0-36.0 g/dL Red Cell Distribution Width 13.6 11.0-15.5 % Platelet Count 141 # 130-400 K/uL Mean Platelet Volume 9.9 7.5-10.5 fL Nucleated Red Blood Cells 0.0 0.0-0.19 % Chemistry Labs: Test 09/17/24 07:20 09/17/24 03:50 09/16/24 03:34 Range/Units Whole Blood Glucose 143 H 70-110 MG/DL Sodium Level 144 136-145 mmol/L Potassium Level 4.3 3.5-5.1 mmol/L Chloride Level 109 101-111 mmol/L Carbon Dioxide Level 27 21-32 mmol/L Blood Urea Nitrogen 16 7-18 mg/dL Creatinine 1.4 H 0.5-1.3 mg/dL Glomerular Filtration Rate Calc 51 >90 mL/min Random Glucose 139 H 70-105 mg/dL Total Calcium 9.5 8.5-10.1 mg/dL Ionized Calcium 1.29 1.15-1.33 MMOL/L Phosphorus Level 1.7 #L 2.5-4.9 mg/dL Magnesium Level 2.40 1.80-2.40 mg/dL Hemoglobin A1c 5.6 4.0-6.0 % Estimated Average Glucose (eAG) 114 70-126 mg/dL Total Bilirubin 1.0 0.2-1.0 mg/dL Aspartate Amino Transf (AST/SGOT) 16 10-37 U/L Alanine Aminotransferase (ALT/SGPT) 13 12-78 U/L Alkaline Phosphatase 87 50-136 U/L B-Type Natriuretic Peptide 250 H 0-100 pg/mL Total Protein 6.6 6.0-8.3 g/dL Albumin 3.1 L 3.5-5.0 g/dL Triglycerides Level 174 30-200 mg/dL Cholesterol Level 152 <200 mg/dL LDL Cholesterol 90 0-99 mg/dL HDL Cholesterol 41 29-71 mg/dL Coagulation Labs: Test 09/17/24 03:50 Range/Units Prothrombin Time 13.2 H 9.6-11.6 SEC Prothromb Time International Ratio 1.28 H 0.85-1.15 Activated Partial Thromboplast Time 30.0 26.3-35.5 SEC DIAGNOSTICS / RADIOLOGY RESULTS: [ ] PLAN 09/17/2024: For now, going to continue current management for the patient. The patient was extubated to a Oxymizer and has so far tolerated well. Patient will continue on cardiac management per the Cardiology team/CTVS. We will repeat surveillance labs in morning. We will follow the recommendation of the CTS and we will intervene if necessary if any critical care need. We will continue to provide general supportive care, GI and DVT prophylaxis. Further orders per attending MD and hospital course NEURO: Minimize central acting medications as possible. Fall Precautions. Well lighted room through the day and minimize interruptions through the night to prevent acute delirium. PULMONARY: Supplemental 02 as needed Titrate Fio2 to keep Spo2 > or = 90% DuoNeb�s and CPT as needed IS hourly while awake for pulmonary hygiene Out of bed to chair as tolerated VAP Bundle CARDIOVASCULAR: Follow hemodynamics. Titrate vasopressor to keep M Levophed, lidocaine, nitroglycerin and epinephrine drip.AP >65 or systolic blood pressure >95mmHg DIPS: Levophed, lidocaine, nitroglycerin and epinephrine drip. LINES: GI & NUTRITION: Continue nutritional support Aspirations precautions Prokinetic agents and laxatives as needed KIDNEYS & ELECTROLYTES: Strict monitoring of intake and output Daily weights Avoid nephrotoxic agents Monitor electrolytes and replace as needed Goal urine output of 30mL/hr or 0.5mL/kg/hr Urine output: [ ] Fluid Balance: [ ] ENDOCRINE: Maintain blood glucose between 100-180 at all times. Insulin sliding scale for blood glucose management INFECTIOUS DISEASE: Trend temperature. Lee-culture if febrile. Micro: [ ] Antibiotics: [ ] HEMATOLOGY & COAGULATION: Monitor H&H. Keep Hgb > 7 Transfuse 1 unit of PRBC for Hgb < 7 Transfuse 1 pack of platelets of platelets < 20, 000 Watch for any signs and symptoms of bleeding SKIN: Pressure ulcer prevention per facility protocol Rehab: PT/OT Prophylaxis: GI: [ ] DVT: [ ] Code Status: Full Resuscitation Disposition: ICU Other: Case was discussed and seen with my supervising physician. The above plan was formulated and agreed upon. ARMANDO BRUNO NP Sep 17, 2024 09:20
[2024-09-17] MEDS: ceFAZolin SODIUM 2 GM VIAL IVP SCH (09:55)
[2024-09-17] MEDS: ASPIRIN 81 MG EC TAB PO SCH (10:02)
[2024-09-17] MEDS: doCUSate SODIUM 100 MG CAP PO SCH (10:02)
[2024-09-17] MEDS: furoSEMIDE 20MG VIAL IV SCH (10:03)
[2024-09-17] MEDS: FAMOTIDINE 20MG VIAL IV SCH (10:03)
[2024-09-17] MEDS: ALBUMIN (HUMAN) 5% 500 ML IV SCH (10:18)
--- NOTE | 2024-09-17 11:30 | NUR ---
PT eval completed. Patient is s/p CABG POD #1. Patient was extubated at 3 am, as per giovanny Raphael to proceed with PT eval. Patient required moderate assistance and VC's to assist and abide by CABG precautions. Addendum: 09/17/24 at 1221 by DANG QURESHI PT Amended: Links added.
--- NOTE | 2024-09-17 11:54 | HMCIMG ---
CHEST 1VW HISTORY: Post CABG COMPARISON: 09/16/2024 FINDINGS: A frontal projection of the chest was obtained. No acute pulmonary infiltrates is seen. Poststernotomy changes are seen. The heart is enlarged. Degenerative changes of the thoracolumbar spine are present. All the lines and tubes are again seen in place. No evidence of aortic calcification is seen. IMPRESSION: 1. No acute pulmonary infiltrate is seen.
[2024-09-17] MEDS: ondanSETRON 4MG INJ IV PRN (12:47)
--- NOTE | 2024-09-17 16:21 | NUR ---
DCP Pt awake, alert, oriented x3. Spoke to step daughter Cuca Flynn [phone] who is POA. PCP is Dr Escoto from [place]. Ms. Flynn states pt lives alone, previously independent, has not had home health services or been to skilled facility. Step daughter and pt both agree to go to rehab post discharge. Addendum: 09/17/24 at 1625 by MAKEDA BROCK RN CM Amended: Links added.
[2024-09-17] MEDS: ZOSYN 3.375GM +NS 50ML IV SCH (17:31)
[2024-09-17] MEDS: IpraTROPium 0.5 MG/2.5 ML INH IH SCH (18:20)
--- NOTE | 2024-09-17 23:03 | PN ---
SUBJECTIVE: The patient is postop day #1 from an off-pump coronary artery bypass grafting. The patient is extubated, sitting up in a bedside chair in the ICU. His vital signs revealed a pulse of 78, blood pressure is 124/48, respirations 12, oxygen saturation 100%. OBJECTIVE: HEENT: Normocephalic, atraumatic. Extraocular movements intact. He has nasal cannula oxygen prongs under his nose. He has a right cervical Vader-Adela catheter reading a cardiac index of 3.2 liters per minute per meter squared. HEART: S1 and S2. CHEST: His sternal wound is bandaged. His chest tubes are in place with a total of 550 mL of output over the last 24 hours. LUNGS: Rhonchi bilaterally, but are unlabored at rest while sitting up in a chair on nasal cannula oxygen. GENITOURINARY: He has Dial catheter in his bladder. EXTREMITIES: He has SCDs and JORY stockings on his lower extremities. He is on Levophed drip at 2 mcg per minute, epinephrine drip at 0.01 mcg per kilo per minute. ASSESSMENT AND PLAN: * Status post off-pump coronary artery bypass grafting. Begin aspirin, Lasix and wean off of epinephrine and Levophed drips. Keep chest tubes in place and on suction. * Postoperative acute pulmonary insufficiency secondary to thoracic surgery. Wean nasal cannula oxygen to maintain oxygen saturation greater than 90%. Encourage incentive spirometry. * Hypercholesterolemia. Begin Lipitor 40 mg p.o. at bedtime and low cholesterol cardiac diet. * DVT prophylaxis. Continue SCDs to lower extremities. Once chest tubes are out, at which time Lovenox will be started. Time spent 30 minutes. The patient is critically ill in the ICU. TID: [id number] RECEIPT: [id number]
[2024-09-18] VITALS (48 sets, daily range): BP systolic 97–144; BP diastolic 43–66; PULSE 70–112; RESP 11–20; TEMP 98.5–100; O2SAT 98–100
[2024-09-18 04:53] LABS: HEMATOCRIT 26.2 % (42-54); MEAN CORPUSCULAR HEMOGLOBIN 30.1 pg (27.0-33.0); MEAN CORPUSCULAR HGB CONC 32.1 g/dL (32.0-36.0); MEAN CORPUSCULAR VOLUME 93.9 fL (79-99); RED BLOOD CELL COUNT(AUTO) 2.79 MIL/uL (4.50-6.20); RED CELL DISTRIBUTION WIDTH 14.2 % (11.0-15.5); WHITE BLOOD COUNT (AUTO) 11.1 K/uL (4.8-10.8)
[2024-09-18 05:02] LABS: CREATININE 1.4 mg/dL (0.5-1.3); POTASSIUM 4.3 mmol/L (3.5-5.1)
--- NOTE | 2024-09-18 09:11 | HMCIMG ---
CHEST 1VW HISTORY: Post CABG COMPARISON: 09/17/2024 FINDINGS: A frontal projection of the chest was obtained. No acute pulmonary infiltrates is seen. Poststernotomy changes are seen. The heart is enlarged. Degenerative changes of the thoracolumbar spine are present. All the lines and tubes are again seen in place. Tortuosity of the aorta is seen. IMPRESSION: 1. No acute pulmonary infiltrate is seen.
--- NOTE | 2024-09-18 09:27 | PN ---
SUBJECTIVE: The patient is postop day #2 from a coronary artery bypass grafting. The patient is in the ICU and doing well. He offers no complaints. OBJECTIVE: VITAL SIGNS: Reveal a pulse of 98, blood pressure 136/55, respirations are 15, oxygen saturation is 100% on nasal cannula oxygen. HEENT: Normocephalic, atraumatic. Extraocular movements intact. He also has a right cervical central venous line. HEART: S1 and S2 and regular. LUNGS: Unlabored at rest, on nasal cannula oxygen. ABDOMEN: Flat with positive bowel sounds. CHEST: His sternal wound is bandaged. His chest tubes are in place with a total of 60 mL of output over the last 24 hours. He is on no pressors. GENITOURINARY: He has a Dial catheter. EXTREMITIES: He has SCDs and JORY stockings. ASSESSMENT AND PLAN: * Postop day #2 from an off-pump coronary artery bypass grafting. We will discontinue his chest tubes. Continue aspirin, Lasix. Continue sternal precautions. Discontinue his Dial catheter and central venous line also. Transfer to telemetry. * Postoperative acute pulmonary insufficiency secondary to thoracic surgery. Encouraged incentive spirometry and getting the patient up out of bed. Wean nasal cannula oxygen to maintain oxygen saturations greater than 90%. * Hypercholesterolemia. Lipitor 40 mg p.o. at bedtime and low-cholesterol, cardiac diet. * DVT prophylaxis. We will begin Lovenox 30 mg subcutaneous daily. Time spent 30 minutes. The patient is critically ill, in the ICU. TID: [id number] RECEIPT: [id number]
[2024-09-18] MEDS: furoSEMIDE 20 MG TABLET PO SCH (10:35)
--- NOTE | 2024-09-18 11:27 | PN ---
[facility] PROGRESS NOTE Date Patient Seen: September 18, 2024 Time of Visit: 11:21 Supervising Physician: Dr. Mihir Marr Primary Care Physician: [] Outpatient Specialists: [ ] Inpatient Consults: [SHC, CTS] PROBLEM LIST: Coronary artery disease, s/p remote stenting, pending CABG Carotid artery stenosis, pending outpatient intervention Vertebral artery stenosis JULIA on admission, resolved Chronic diastolic heart failure Hyperkalemia, resolved Anemia of chronic disease INTERVAL HISTORY: 09/17/2024: At the time of my evaluation, the patient was in staff nurse reports no events overnight. The patient is on Oxymizer and is noted elevated blood pressure readings data today showed a interval increase of WBCs 13.5, H&H 8.9/27.5 and a platelet count of 1 chemistry panel today was unremarkable. Currently, the patient remains on a Levophed, lidocaine, nitroglycerin and epinephrine drip. No new complaint. 09/18/2024: At the time of my evaluation, the patient is lying in bed. Per the staff nurse, no acute events overnight. The patient remains on nasal cannula on the monitor is hemodynamically stable. Laboratory data today showed improved WBCs to 11.1 chemistry panel showed stable renal parameters otherwise no changes of concern imaging of the chest today, showed no acute intrapulmonary changes. Currently, the patient continues on furosemide, aspirin, atorvastatin and Lovenox. No other complaint. REVIEW OF SYSTEMS: 12 point ROS reviewed with patient. Pertinent positives mentioned above. Otherwise negative. PHYSICAL EXAM: GENERAL: Alert, weak, awake oriented x 3 HEENT: EOMI, Sclera non icteric, moist mucosa NECK: Supple, no JVD, trachea midline LUNGS: Clear breath sounds bilaterally. No wheezes HEART: Regular rate and rhythm. Normal S1 and S2, without murmurs ABD: Abdomen soft, nontender. Bowel sounds present EXT: No clubbing cyanosis or edema NEURO: Alert and oriented to person, follows commands Vital Signs (last 8hr) Date Time Temp Pulse Resp B/P (MAP) Pulse Ox O2 Delivery O2 Flow Rate FiO2 09/18/24 06:35 70 18 N/Cannula Low lpm 2.0 28 09/18/24 06:35 70 18 LABS: Hematology Labs: Test 09/18/24 04:11 Range/Units White Blood Count 11.1 H 4.8-10.8 K/uL Red Blood Count 2.79 L 4.50-6.20 MIL/uL Hemoglobin 8.4 L 14.0-18.0 g/dL Hematocrit 26.2 L 42-54 % Mean Corpuscular Volume 93.9 79-99 fL Mean Corpuscular Hemoglobin 30.1 27.0-33.0 pg Mean Corpuscular Hemoglobin Concent 32.1 32.0-36.0 g/dL Red Cell Distribution Width 14.2 11.0-15.5 % Platelet Count 113 L 130-400 K/uL Mean Platelet Volume 10.5 7.5-10.5 fL Nucleated Red Blood Cells 0.0 0.0-0.19 % Chemistry Labs: Test 09/18/24 06:15 09/18/24 04:11 09/17/24 03:50 09/16/24 23:00 Range/Units Whole Blood Glucose 120 H 70-110 MG/DL Sodium Level 142 136-145 mmol/L Potassium Level 4.3 3.5-5.1 mmol/L Chloride Level 103 101-111 mmol/L Carbon Dioxide Level 31 21-32 mmol/L Blood Urea Nitrogen 17 7-18 mg/dL Creatinine 1.4 H 0.5-1.3 mg/dL Glomerular Filtration Rate Calc 51 >90 mL/min Random Glucose 123 H 70-105 mg/dL Total Calcium 8.8 8.5-10.1 mg/dL Ionized Calcium 1.29 1.15-1.33 MMOL/L Phosphorus Level 1.7 #L 2.5-4.9 mg/dL Magnesium Level 2.40 1.80-2.40 mg/dL Vitamin B12 Level 830 193-986 pg/mL Vitamin D 25-Hydroxy 24.2 30.0-100.0 ng/mL Coagulation Labs: Test 09/17/24 03:50 Range/Units Prothrombin Time 13.2 H 9.6-11.6 SEC Prothromb Time International Ratio 1.28 H 0.85-1.15 Activated Partial Thromboplast Time 30.0 26.3-35.5 SEC DIAGNOSTICS / RADIOLOGY RESULTS: [ ] PLAN 09/17/2024: For now, going to continue current management for the patient. The patient was extubated to a Oxymizer and has so far tolerated well. Patient will continue on cardiac management per the Cardiology team/CTVS. We will repeat surveillance labs in morning. We will follow the recommendation of the CTS and we will intervene if necessary if any critical care need. We will continue to provide general supportive care, GI and DVT prophylaxis. Further orders per attending MD and hospital course 09/18/2024: For now, going to continue current management for the patient. He will remain on nasal cannula and we will adjust oxygenation as necessary. Patient will continue on cardiac management per the Cardiology team/CTVS. Cordis and chest tube mediastinal and pleural remain in place. We will repeat surveillance labs in morning. We will follow the recommendation of the CTS and we will intervene if necessary. We will continue to provide general supportive care, GI and DVT prophylaxis. Further orders per attending MD and hospital course. NEURO: Minimize central acting medications as possible. Fall Precautions. Well lighted room through the day and minimize interruptions through the night to prevent acute delirium. PULMONARY: Supplemental 02 as needed Titrate Fio2 to keep Spo2 > or = 90% DuoNeb�s and CPT as needed IS hourly while awake for pulmonary hygiene Out of bed to chair as tolerated VAP Bundle CARDIOVASCULAR: Follow hemodynamics. Titrate vasopressor to keep M Levophed, lidocaine, nitroglycerin and epinephrine drip.AP >65 or systolic blood pressure >95mmHg DIPS: Levophed, lidocaine, nitroglycerin and epinephrine drip. LINES: GI & NUTRITION: Continue nutritional support Aspirations precautions Prokinetic agents and laxatives as needed KIDNEYS & ELECTROLYTES: Strict monitoring of intake and output Daily weights Avoid nephrotoxic agents Monitor electrolytes and replace as needed Goal urine output of 30mL/hr or 0.5mL/kg/hr Urine output: [ ] Fluid Balance: [ ] ENDOCRINE: Maintain blood glucose between 100-180 at all times. Insulin sliding scale for blood glucose management INFECTIOUS DISEASE: Trend temperature. Lee-culture if febrile. Micro: [ ] Antibiotics: [ ] HEMATOLOGY & COAGULATION: Monitor H&H. Keep Hgb > 7 Transfuse 1 unit of PRBC for Hgb < 7 Transfuse 1 pack of platelets of platelets < 20, 000 Watch for any signs and symptoms of bleeding SKIN: Pressure ulcer prevention per facility protocol Rehab: PT/OT Prophylaxis: GI: Famotidine DVT: Lovenox Code Status: Full Resuscitation Disposition: ICU Other: Case was discussed and seen with my supervising physician. The above plan was formulated and agreed upon. ARMANDO BRUNO NP September 18, 2024 11:27
[2024-09-18] MEDS: INSULIN humuLIN R 100 UNIT/ML 3ML SQ SCH (11:30)
--- NOTE | 2024-09-18 14:20 | NUR ---
RECEIVED PATIENT FROM ROOM 209 ICU VIA CARDIAC CHAIR AFTER RECEIVING REPORT FROM BERTO SLINGER SEQUINS. PATIENT APPEARS COMFORTABLE. TELEMETRY READING ST HR 109. WILL CONTINUE TO MONITOR.
--- NOTE | 2024-09-18 17:15 | NUR ---
BEDSIDE SWALLOW EVAL COMPLETED. +s/s of aspiration. Recommend minced and moist solids, moderately thick liquids and pills crushed with pureed as tolerated until MBSS. Compensatory strategies: 1. sit upright during oral intake 2. small bites/sips 3. slow oral intake 4. No straws SERVICENOW ADMINISTRATOR DEVELOPER reviewed results and recommendations with patient/family and nurse Hina. SERVICENOW ADMINISTRATOR DEVELOPER educated patient on risks and consequences of aspiration. Speech therapy will follow up to complete MBSS. All questions answered. Addendum: 09/18/[address] [facility]NA[facility] Amended: Links added.
--- NOTE | 2024-09-18 17:43 | CONS ---
[facility] CARDIOLOGY CONSULTATION NOTE Date Patient Seen: September 18, 2024 Time of Visit: 17:32 Reason for Consultation: [ CAD ] History of Present Illness: [78-year-old male patient that follows up in Cardiology Clinic with Dr Gudino, with a past medical history of hypertension hyperlipidemia, prediabetes, history of coronary artery disease with remote angioplasty and stent placement in 2014 to LAD with a 2nd stent placement in 2017 to his OM, the patient was admitted as an outpatient for coronary angiogram that revealed severe coronary artery disease (08/2024) CV surgery was consulted and the patient was status post 4v CABG ( TANG-LAD, SVG- D1, SVG -Ramus , SVG- PDA ) currently postop day 2. The patient was transferred out of the ICU, currently with minimal pressor support. Chest tubes are in and functional. The patient denies any cardiac symptoms or anginal equivalents. Past Medical History: [ Refer to chart] Past Surgical History: [Refer to HPI ] Family History: [Refer to HPI ] Social History: [Refer to HPI ] Habits: [Never] smoker. [Denies] alcohol consumption. [Denies] illicit drug use Review of Systems: A review of12 point system was negative set per HPI Physical Examination: GENERAL: [No acute distress.] HEAD: [Normal with no signs of head trauma.] EYES: [PERRLA, EOMI, conjunctiva and sclera normal.] ENT: [Hearing grossly intact, normal oropharynx.] NECK: [Supple without JVD. There is no tenderness, lymphadenopathy, or masses. No thyromegaly. Normal carotid upstrokes without bruits.] LUNGS: [Clear breath sounds bilaterally.No wheezes, or rhonchi.] HEART: [Normal rate and rhythm. Normal S1 and S2 without mumurs, gallop or rub.] VASC: [Peripheral pulses +2 bilaterally.] ABD: [Bowel sounds normal, soft, nontender, no masses, no organomegaly. No audible bruits.] : [Not examined] LYMPH: [No lymphadenopathy noted.] EXT: [No clubbing, cyanosis or edema.] SKIN: [Sternotomy incision appears clean without purulent discharge or bleeding.] NEURO: [Awake, alert, and oriented x3. No focal sensory or strength deficits noted.] Vital Signs (last 8hr) Date Time Temp Pulse Resp B/P (MAP) Pulse Ox O2 Delivery O2 Flow Rate FiO2 09/18/24 16:00 99.1 105 20 133/65 100 Nasal Cannula 2.0 09/18/24 13:00 105 17 139/65 100 09/18/24 12:00 100 Nasal Cannula* 1 24 09/18/24 12:00 99.0 99 17 139/65 100 09/18/24 11:45 98 14 130/56 100 09/18/24 11:24 95 18 09/18/24 11:23 95 18 N/Cannula Low lpm 2.0 28 09/18/24 11:00 97 14 129/55 100 09/18/24 10:00 91 12 97/43 100 Laboratory: [ ] Hematology Labs: Test 09/18/24 04:11 Range/Units White Blood Count 11.1 H 4.8-10.8 K/uL Red Blood Count 2.79 L 4.50-6.20 MIL/uL Hemoglobin 8.4 L 14.0-18.0 g/dL Hematocrit 26.2 L 42-54 % Mean Corpuscular Volume 93.9 79-99 fL Mean Corpuscular Hemoglobin 30.1 27.0-33.0 pg Mean Corpuscular Hemoglobin Concent 32.1 32.0-36.0 g/dL Red Cell Distribution Width 14.2 11.0-15.5 % Platelet Count 113 L 130-400 K/uL Mean Platelet Volume 10.5 7.5-10.5 fL Nucleated Red Blood Cells 0.0 0.0-0.19 % Chemistry Labs: Test 09/18/24 17:02 09/18/24 04:11 09/17/24 03:50 09/16/24 23:00 Range/Units Whole Blood Glucose 120 H 70-110 MG/DL Bedside Glucose Comment Notified Nurse Sodium Level 142 136-145 mmol/L Potassium Level 4.3 3.5-5.1 mmol/L Chloride Level 103 101-111 mmol/L Carbon Dioxide Level 31 21-32 mmol/L Blood Urea Nitrogen 17 7-18 mg/dL Creatinine 1.4 H 0.5-1.3 mg/dL Glomerular Filtration Rate Calc 51 >90 mL/min Random Glucose 123 H 70-105 mg/dL Total Calcium 8.8 8.5-10.1 mg/dL Ionized Calcium 1.29 1.15-1.33 MMOL/L Phosphorus Level 1.7 #L 2.5-4.9 mg/dL Magnesium Level 2.40 1.80-2.40 mg/dL Vitamin B12 Level 830 193-986 pg/mL Vitamin D 25-Hydroxy 24.2 30.0-100.0 ng/mL Coagulation Labs: Test 09/17/24 03:50 Range/Units Prothrombin Time 13.2 H 9.6-11.6 SEC Prothromb Time International Ratio 1.28 H 0.85-1.15 Activated Partial Thromboplast Time 30.0 26.3-35.5 SEC Diagnostics / Radiology: [Copy/Paste Echos/Imaging Report here] Assessment: [CAD status post remote stenting Chronic diastolic heart failure ] Plan: [# CAD s/p 4v CABG ( TANG-LAD, SVG- D1, SVG -Ramus , SVG- PDA ) on 09/16/2024 by The patient presented to [facility] for elective coronary angiogram that revealed severe multivessel CAD CV surgery was consulted the patient was status post CABG The patient has a transferred successfully out of the ICU, on minimal pressor support Currently denies any cardiac symptoms or anginal equivalents. Strict I's and O's and daily weights. Chest tubes are in and functional. ] Keep on telemetry, monitor/replace electrolytes as needed Continue Lasix 20 mg p.o. every12 hours Continue [id number] mg daily atorvastatin 40 mg daily The patient will require dap for six-months ([id number] mg daily, [id number] mg daily) Once deemed safe by CV surgery and all the chest tubes are out we will recommend initiating [id number] mg daily Thank you for this consult cardiology will continue to follow along postoperatively Greg Marshall MD ATTESTATION BY PHYSICIAN I have seen and examined the patient, reviewed the above documentation, participated in medical decision making, made necessary modifications, and agree with the treatment plan as documented by my mid-level provider above. MD GEETA Latif JAMES R MD September 18, 2024 17:43
[2024-09-18] MEDS: acetaMINOPHEN 325 MG TAB PO PRN (20:39)
--- NOTE | 2024-09-18 21:00 | NUR ---
PATIENT STATED HE HAD SOFT TO LOOSE BOWEL MOVEMENT THIS MORNING. OPTED OUT OF TAKING THE PM DOSE OF [facility]ACE.
[2024-09-19] VITALS (13 sets, daily range): BP systolic 98–124; BP diastolic 53–70; PULSE 80–111; RESP 17–20; TEMP 98.2–99.3; O2SAT 98–99
[2024-09-19 04:13] LABS: HEMATOCRIT 24.3 % (42-54); MEAN CORPUSCULAR HEMOGLOBIN 29.5 pg (27.0-33.0); MEAN CORPUSCULAR HGB CONC 32.1 g/dL (32.0-36.0); RED BLOOD CELL COUNT(AUTO) 2.64 MIL/uL (4.50-6.20); RED CELL DISTRIBUTION WIDTH 14.1 % (11.0-15.5); WHITE BLOOD COUNT (AUTO) 8.9 K/uL (4.8-10.8)
[2024-09-19 04:38] LABS: CREATININE 1.5 mg/dL (0.5-1.3); POTASSIUM 3.8 mmol/L (3.5-5.1)
[2024-09-19] MEDS: ENOXAPARIN SODIUM 30 MG/0.3 ML SQ SCH (08:07)
[2024-09-19] MEDS ORDERED: NOREPINEPHRIN 8MG/250ML NS 250 ML IV PRN (08:30)
--- NOTE | 2024-09-19 11:25 | HMCSR ---
APPROVED REPORT EXAM: Two-dimensional and M-mode echocardiogram with Doppler and color Doppler. INDICATION ICD: Assess left ventricular function 2D Dimensions IVSd1.1 (0.7-1.1cm)LVEF(%)54.5 (>50%)LVED Vol(simp.)75.0 mL LVDd4.0 (3.8-5.6cm)FS(%)28 %LVES Vol(simp.)27.0 mL PWd1.0 (0.7-1.1cm)LVEF(%, simp.)63 % IVSs1.3 cm LVDs2.9 (2.5-4.0cm) PWs1.4 cm Left Ventricle Left ventricular cavity size is normal. There is normal left ventricular wall thickness. LVEF is 60-6 5%. Other Information Quality : Technically difficult study due to status post heart cath pt could not be placed onto left side. Conclusion Left ventricular cavity size is normal. There is normal left ventricular wall thickness. LVEF is 60-65%.
--- NOTE | 2024-09-19 12:22 | HMCIMG ---
CHEST 1VW HISTORY: Post CABG COMPARISON: 09/18/2024 FINDINGS: A frontal projection of the chest was obtained. Mild left lung pulmonary infiltrates are seen. Poststernotomy changes are seen. The heart is enlarged. Degenerative changes of the thoracolumbar spine are present. Aortic calcifications are seen. IMPRESSION: 1. Mild left lung pulmonary infiltrates.
--- NOTE | 2024-09-19 13:03 | NUR ---
Nutrition consult per BMI for age Reviewed labs, notes, and medications. s/p CABG day 3, per DOGGER mod. thick, minced and moist solids pending MBSS 09/18/24, on HH + texture modifications, lasix, IV abx, IV fluids, BG 122, elevated BUN 25, elevated Cr 1.4, vit. D 24.2, HDL 41 per chart review. Wt via bed scale, chest tubes in place, last BM 09/18/24, incision wound, no edema, well nourished, -895 ml balance 09/18/24 per nursing. Family present during visit. RD reviewed labs, MNT for HH diet, family with several questions, all answered, Pt and family receptive. Visually assessed mild muscle loss during visit. Recommendations: -Provide HH + ensure HP BID w/ am and dinner tray -Follow DOGGER recs -Monitor PO intake -Encourage PO intake as able -Monitor BM -If no BM >3 days consider stool softener -Monitor electrolytes -Replenish electrolytes per protocol -Monitor wts -Reweigh as able -Provide vit. D supplement QD per vit. D 24.1 -Provide b-complex QD -Recommend Pt to follow up with PCP -Monitor goals of care RD to follow + available for consult per protocol Addendum: 09/19/24 at [address] Amended: Links added.
--- NOTE | 2024-09-19 14:10 | NUR ---
MBSS COMPLETED. STASIS with pudding thick textures leading to deep non-transient penetrations followed by throat clear response; deep non-transient penetrations after the swallow with honey thick liquids via cup sips with throat clear response. Recommend NPO, short term alternate means of nutrition/hydration and repeat exam within 1 week. DIAGNOSTIC FINDINGS: Pt presented with moderate to severe pharyngeal dysphagia characterized by delayed pharyngeal response trigger; decreased hyo-laryngeal elevation/excursion; decreased tongue base retraction; evidenced by tongue pumping; impaired epiglottic inversion; premature spillage to valleculae with spillover to pyriform sinuses; severe residue on base of tongue, valleculae, pyriform sinuses and posterior pharyngeal wall unable to clear with extra dry swallows. Exam terminated at this time due to severity of dysphagia. SEARCHLIGHT OPERATOR reviewed results and recommendations with patient, family, and nurse Rodolfo. SEARCHLIGHT OPERATOR educated patient/family on risks and consequences of aspiration. Speech therapy warranted at this time to address pharyngeal dysphagia. All questions answered. RECOMMENDATIONS: Dysphagia Therapy 1-3X week to improve pharyngeal swallow: LTG#1: Pt will tolerate least restrictive diet to meet nutrition/hydration with no s/s of aspiration. LTG#2: Skilled education Pt/family/staff STG#1: Pt will participate in laryngeal elevation/excursion exercises with 90% accuracy and min A. STG#2: Pt will participate in tongue base retraction exercises with 90% acc/with Min A. STG#3: Pt will demonstrate a swallow delay of only -2 seconds following thermal tactile stimulation with 90% accuracy with Min A. STG#4: Skilled education Pt/family/staff. Addendum: 09/19/[address] [facility] JAFFE Amended: Links added.
--- NOTE | 2024-09-19 15:29 | PN ---
[facility] PROGRESS NOTE Date Patient Seen: September 19, 2024 Time of Visit: 15:26 Supervising Physician: Dr. Edgar Primary Care Physician: [] Outpatient Specialists: [ ] Inpatient Consults: [SHC, CTS] PROBLEM LIST: Coronary artery disease, s/p remote stenting, pending CABG Carotid artery stenosis, pending outpatient intervention Vertebral artery stenosis JULIA on admission, resolved Chronic diastolic heart failure Hyperkalemia, resolved Anemia of chronic disease Left lobar pneumonia ?? Dysphagia pending MBSS INTERVAL HISTORY: 09/17/2024: At the time of my evaluation, the patient was in staff nurse reports no events overnight. The patient is on Oxymizer and is noted elevated blood pressure readings data today showed a interval increase of WBCs 13.5, H&H 8.9/27.5 and a platelet count of 1 chemistry panel today was unremarkable. Currently, the patient remains on a Levophed, lidocaine, nitroglycerin and epinephrine drip. No new complaint. 09/18/2024: At the time of my evaluation, the patient is lying in bed. Per the staff nurse, no acute events overnight. The patient remains on nasal cannula on the monitor is hemodynamically stable. Laboratory data today showed improved WBCs to 11.1 chemistry panel showed stable renal parameters otherwise no changes of concern imaging of the chest today, showed no acute intrapulmonary changes. Currently, the patient continues on furosemide, aspirin, atorvastatin and Lovenox. No other complaint. 09/19/2024: At the time of my evaluation, the patient was sitting up at the bedside chair. Per the staff nurse, no acute events overnight. The patient is pending a MBSS today. He remains on a nasal cannula and hemodynamically stable on the monitor. Laboratory data today shows no major changes of concern. Chest imaging was unremarkable. Patient continues on furosemide, Lovenox, Zosyn, atorvastatin and is to start on metoprolol today. No other complaint. REVIEW OF SYSTEMS: 12 point ROS reviewed with patient. Pertinent positives mentioned above. Otherwise negative. PHYSICAL EXAM: GENERAL: Alert, weak, awake oriented x 3 HEENT: EOMI, Sclera non icteric, moist mucosa NECK: Supple, no JVD, trachea midline LUNGS: Diminished breath sounds bilaterally. No wheezes HEART: Regular rate and rhythm. Normal S1 and S2, without murmurs ABD: Abdomen soft, nontender. Bowel sounds present EXT: No clubbing cyanosis or edema NEURO: Alert and oriented to person, follows commands Vital Signs (last 8hr) Date Time Temp Pulse Resp B/P (MAP) Pulse Ox O2 Delivery O2 Flow Rate FiO2 09/19/24 11:26 101 18 09/19/24 11:00 99.0 111 17 98/53 95 Nasal Cannula 2.0 09/19/24 08:00 98 Nasal Cannula* 1 24 LABS: Hematology Labs: Test 09/19/24 04:02 Range/Units White Blood Count 8.9 4.8-10.8 K/uL Red Blood Count 2.64 L 4.50-6.20 MIL/uL Hemoglobin 7.8 L 14.0-18.0 g/dL Hematocrit 24.3 L 42-54 % Mean Corpuscular Volume 92.0 79-99 fL Mean Corpuscular Hemoglobin 29.5 27.0-33.0 pg Mean Corpuscular Hemoglobin Concent 32.1 32.0-36.0 g/dL Red Cell Distribution Width 14.1 11.0-15.5 % Platelet Count 97 L 130-400 K/uL Mean Platelet Volume 10.1 7.5-10.5 fL Nucleated Red Blood Cells 0.0 0.0-0.19 % Chemistry Labs: Test 09/19/24 12:06 09/19/24 04:02 09/18/24 19:07 Range/Units Whole Blood Glucose 128 H 70-110 MG/DL Sodium Level 141 136-145 mmol/L Potassium Level 3.8 3.5-5.1 mmol/L Chloride Level 104 101-111 mmol/L Carbon Dioxide Level 33 H 21-32 mmol/L Blood Urea Nitrogen 25 H 7-18 mg/dL Creatinine 1.5 H 0.5-1.3 mg/dL Glomerular Filtration Rate Calc 47 >90 mL/min Random Glucose 123 H 70-105 mg/dL Total Calcium 8.1 L 8.5-10.1 mg/dL Bedside Glucose Comment Notified Nurse DIAGNOSTICS / RADIOLOGY RESULTS: [ ] PLAN 09/19/24: For now, going to continue current management for the patient. He is going to continue on antibiotic therapy as ordered with IV Zosyn due to suspicion of pneumonia probably aspiration type. We will await the MBSS that is planned for today. Will continue on cardiac management per the Cardiology team/[facility]. We will repeat surveillance labs in morning. We will follow the recommendation of the CTS and we will intervene if necessary. We will continue to provide general supportive care, GI and DVT prophylaxis. Further orders per attending MD and hospital course. NEURO: Minimize central acting medications as possible. Maintain fall precautions, adequate lighting during the day PULMONARY: Supplemental 02 as needed. Maintain aspiration precautions at all times CARDIOVASCULAR: Follow hemodynamics. Vital signs per facility protocol GI & NUTRITION: Continue with nutritional support. Continue stool softeners and laxatives as needed. KIDNEYS & ELECTROLYTES: Strict monitoring of intake, output and overall fluid balance. Avoid nephrotoxic medications to the extent possible. Medications to be dosed according to renal function. Monitor electrolytes and replace as needed ENDOCRINE: Maintain blood glucose between 100-180 at all times. Hypoglycemia protocol in place INFECTIOUS DISEASE: Trend temperature, WBC and procalcitonin level Follow cultures, deescalate antibiotics as soon as possible. Panculture if new onset fever ONCOLOGY/HEMATOLOGY/COAGULATION: Monitor for s/s of bleeding Monitor hemoglobin, coagulation studies as needed SKIN: Pressure ulcer prevention per facility protocol Specialty mattress ORTHO/REHAB: Continue PT/OT Prophylaxis: Continue GI and DVT prophylaxis Code Status: Full Resuscitation Disposition: TBD Other: Patient was seen and case was discussed with yasmin LEOS. Plan was discussed and agreed upon. ARMANDO BRUNO NP September 19, 2024 15:29
--- NOTE | 2024-09-19 16:55 | HMCIMG ---
MODIFIED BARIUM SWALLOW W CINE REASON: ABNORMAL BEDSIDE SWALLOW EVALUATION. COMPARISON: None TECHNIQUE: Modified barium swallow study was performed with referring speech therapist. FINDINGS: Please see procedure report by the referring speech therapist. IMPRESSION: Modified barium swallow study.
--- NOTE | 2024-09-19 19:48 | PN ---
SUBJECTIVE: The patient is postop day #3 from a coronary artery bypass grafting. The patient has been doing relatively well. He offers no complaints. In the last 24 hours, he has been transferred out of the ICU to the telemetry floor where he has been doing well. OBJECTIVE: GENERAL: The patient is sitting up in a bedside chair, in no apparent distress. He is accompanied by his daughter. VITAL SIGNS: Reveal temperature 98.2, blood pressure is 102/63, his pulse is 107, respirations 17, oxygen saturation 99% on nasal cannula oxygen. HEENT: Reveals normocephalic, atraumatic. Extraocular movements intact. He has nasal cannula oxygen prongs under his nose. HEART: S1, S2, and tachycardic. CHEST: His sternal wound is clean, dry, and intact. Chest tube has been removed. ABDOMEN: His abdomen is flat with positive bowel sounds. EXTREMITIES: He has JORY stockings on his lower extremities and SCDs. ASSESSMENT AND PLAN: * Status post coronary artery bypass grafting. Continue aspirin, Lasix. Begin metoprolol. Begin ambulation in the halls. Consult case management for placement and eventual placement in a group home facility. * Postoperative acute pulmonary insufficiency secondary to thoracic surgery. Wean nasal cannula oxygen, maintain oxygen saturation greater than 90% on room air. * Hypercholesterolemia. Lipitor 80 mg at bedtime and low cholesterol, cardiac diet. * DVT prophylaxis. Lovenox 30 mg subcutaneous daily. TID: [id number] RECEIPT: [id number]
--- NOTE | 2024-09-19 20:35 | NUR ---
MBSS RECOMMENDATIONS REPORTED TO TAHA NONOG ORDERS RECEIVED TO KEEP PT NPO AND INSERT NGTUBE
[2024-09-19] MEDS: metoPROLOL tartRATE 25 MG TAB PO SCH (20:46)
--- NOTE | 2024-09-19 21:40 | NUR ---
NGTUBE INSERTED PT TOLERATED WELL, PENDING CXRY FOR POSITIONING WILL CONT TO MONITOR
--- NOTE | 2024-09-19 22:22 | NUR ---
S/P XRAY, RECOMMENDATIONS RECEIVED FROM JIGNESH POWERS WATER SOFTENER SERVICER AND INSTALLER OK TO USE NGTUBE, IF RESISTANCE NOTED OK TO PULL BACK 4 CM WILL CONT TO MONITOR
--- NOTE | 2024-09-19 22:36 | HMCIMG ---
CHEST 1VW HISTORY: Check NG tube placement COMPARISON: Same date x-ray FINDINGS: A frontal projection of the chest was obtained. There are left lower lung infiltrates and small left pleural effusion. Poststernotomy changes are seen. The heart is enlarged. Degenerative changes of the thoracolumbar spine are present. Nasogastric tube is seen with distal tip in the plane of the stomach. All the lines and tubes are again seen in place. No evidence of aortic calcification is seen. IMPRESSION: 1. Left lower lung infiltrates and small left pleural effusion.
[2024-09-20] VITALS (16 sets, daily range): BP systolic 102–139; BP diastolic 62–87; PULSE 85–105; RESP 16–20; TEMP 97.7–99.3; O2SAT 95–98
[2024-09-20 04:17] LABS: HEMATOCRIT 22.4 % (42-54); MEAN CORPUSCULAR HEMOGLOBIN 30.2 pg (27.0-33.0); MEAN CORPUSCULAR VOLUME 91.4 fL (79-99); RED BLOOD CELL COUNT(AUTO) 2.45 MIL/uL (4.50-6.20); WHITE BLOOD COUNT (AUTO) 7.5 K/uL (4.8-10.8)
[2024-09-20 04:45] LABS: CREATININE 1.3 mg/dL (0.5-1.3)
[2024-09-20 05:02] LABS: POTASSIUM 2.9 mmol/L (3.5-5.1)
[2024-09-20] MEDS: PoTASSium chl 10% ELIXIR 20MEQ 20 MEQ/15 ML UDCUP PO PRN (05:13)
--- NOTE | 2024-09-20 08:14 | HMCIMG ---
CHEST 1VW HISTORY: Pneumonitis COMPARISON: None FINDINGS: A frontal projection of the chest was obtained. Prominent interstitial markings are seen with possible superimposed infiltrates. Poststernotomy changes are seen. The heart is enlarged. Degenerative changes of the thoracolumbar spine are present. Degenerative changes as No evidence of aortic calcification is seen. IMPRESSION: 1. Prominent interstitial markings are seen with possible superimposed infiltrates.
--- NOTE | 2024-09-20 09:07 | PN ---
This is a 78-year-old male with a history of coronary artery disease status post PTCA/PCI of the LAD in 2014 with subsequent PCI to the obtuse marginal in 2017, hypertension, hyperlipidemia, prediabetes and chronic diastolic heart failure. He underwent elective left heart catheterization 09/15/2024 which showed severe three-vessel coronary artery disease with 70% ostial stenosis of the left internal carotid artery and 80% proximal stenosis of the right vertebral artery. Preop echocardiogram 09/15/2024 shows an ejection fraction of 60-65%. He underwent CABG x4 with TANG to LAD, reverse saphenous vein graft from the aorta to the 1st diagonal, reverse saphenous vein graft from the aorta to the ramus, reverse saphenous vein graft from the aorta to the PDA on 09/16/2024. He has been placed on antibiotics due to suspicion for aspiration pneumonia. An NG tube is in place. White blood count 7.5, hemoglobin 7.4 (12.2 on admission), hematocrit 22.4, platelets 102, creatinine 1.3, potassium 2.9. His most recent blood pressure is 114/67. He is currently in sinus rhythm with heart rates in the 90s to 100s. On exam, he is in no acute distress, NG tube in place, regular rate and rhythm, mildly tachycardic, lungs are clear to auscultation, no lower extremity edema is noted. He denies chest pain, shortness or breath, weakness or dizziness. Assessment: 1. Severe three-vessel coronary artery disease. 2. Status post CABG x4 09/16/2024. 3. Preserved LVEF. 4. Left internal carotid artery stenosis, right vertebral artery stenosis. 5. Sinus tachycardia. 6. Postoperative anemia. 7. NG tube in place due to suspicion for aspiration. 8. Hypokalemia. Plan: 1. He underwent elective left heart catheterization 09/15/2024 revealing severe three-vessel coronary artery disease. He is status post CABG x4 09/16/2024. T here was concern for aspiration and an NG tube has been placed. He offers up no new cardiac complaints. 2. Continue aspirin 81 mg once daily, atorvastatin 80 mg once daily and furosemide 20 mg twice daily. 3. We will titrate metoprolol tartrate to 25 mg twice daily due to sinus tachycardia. 4. Replace potassium. 5. We will follow the patient. Vitals/Labs Vital Signs Date Time Temp Pulse Resp B/P (MAP) Pulse Ox O2 Delivery O2 Flow Rate FiO2 09/20/24 07:40 99.0 98 16 114/67 96 Room Air 09/20/24 06:54 21 09/19/24 20:00 0 Laboratory Tests 09/20/24 04:09 DOUG KINCAID September 20, 2024 09:07
[2024-09-20] MEDS: metoPROLOL tartRATE 25 MG TAB PO SCH (09:29)
--- NOTE | 2024-09-20 17:07 | PN ---
SUBJECTIVE: The patient is postop day #4 from a coronary artery bypass grafting. Yesterday, the patient underwent a modified barium swallow study, which he failed and an NG tube was placed to give him his medications. He otherwise does not offer any complaints. OBJECTIVE: VITAL SIGNS: Reveal a temperature of 99.0, blood pressure 114/67, pulse 98, respirations 16, oxygen saturation 96%. HEENT: Reveals normocephalic, atraumatic. He is conversive. He has nasogastric tube in his left naris. CHEST: His sternal wound is healing well. Chest tubes are out. HEART: S1 and S2 and nearly tachycardic. LUNGS: Unlabored at rest on room air. ABDOMEN: Flat and nontender. EXTREMITIES: Perfusion of his extremities appears adequate. LABORATORY DATA: His white cell count is 7500, hemoglobin 7.4. ASSESSMENT AND PLAN: * Status post coronary artery bypass grafting. Continue aspirin, metoprolol, Lasix, sternal precautions, and cardiac rehab. * Anemia. Continue to trend. Do not transfuse unless hemoglobin is below 7.0. * Hypercholesterolemia. Lipitor 80 mg at bedtime. Low cholesterol diet. * . Continue Lovenox subcutaneously daily. * History of aspiration. Will ask dietary for tube feeds. Reassess swallow study after the weekend. TID: [id number] RECEIPT: [id number]
--- NOTE | 2024-09-20 18:58 | PN ---
[facility] PROGRESS NOTE Date Patient Seen: September 20, 2024 Time of Visit: 18:55 Supervising Physician: Dr. Edgar Primary Care Physician: [] Outpatient Specialists: [ ] Inpatient Consults: [SHC, CTS] PROBLEM LIST: Coronary artery disease, s/p remote stenting, pending CABG Carotid artery stenosis, pending outpatient intervention Vertebral artery stenosis JULIA on admission, resolved Chronic diastolic heart failure Hyperkalemia, resolved Anemia of chronic disease Left lobar pneumonia Dysphagia failed MBSS INTERVAL HISTORY: 09/17/2024: At the time of my evaluation, the patient was in staff nurse reports no events overnight. The patient is on Oxymizer and is noted elevated blood pressure readings data today showed a interval increase of WBCs 13.5, H&H 8.9/27.5 and a platelet count of 1 chemistry panel today was unremarkable. Currently, the patient remains on a Levophed, lidocaine, nitroglycerin and epinephrine drip. No new complaint. 09/18/2024: At the time of my evaluation, the patient is lying in bed. Per the staff nurse, no acute events overnight. The patient remains on nasal cannula on the monitor is hemodynamically stable. Laboratory data today showed improved WBCs to 11.1 chemistry panel showed stable renal parameters otherwise no changes of concern imaging of the chest today, showed no acute intrapulmonary changes. Currently, the patient continues on furosemide, aspirin, atorvastatin and Lovenox. No other complaint. 09/19/2024: At the time of my evaluation, the patient was sitting up at the bedside chair. Per the staff nurse, no acute events overnight. The patient is pending a MBSS today. He remains on a nasal cannula and hemodynamically stable on the monitor. Laboratory data today shows no major changes of concern. Chest imaging was unremarkable. Patient continues on furosemide, Lovenox, Zosyn, atorvastatin and is to start on metoprolol today. No other complaint. 09/20/2024: At the time of my evaluation, the patient was sitting up to the bedside chair. The patient now has a NG tube in place per the staff nurse this is secondary to failing his MBSS yesterday. The patient remains on room air and with optimal oxygen saturation. He is otherwise hemodynamically stable. Laboratory data today was noticeable for a hemoglobin of 7.4, hematocrit of 22.4 and a platelet count of 102. Chemistry panel was notable for a sodium of 139, potassium of 2.9, chloride of 103, CO2 of 31, BUN is 30, creatinine of 1.3 and a GFR of 56. Chest x-ray showed prominent interstitial markings with superimposed infiltrates. Currently, the patient remains on metoprolol, Lovenox, furosemide, aspirin, and atorvastatin. The patient is also on empiric antibiotic therapy with IV Zosyn. No other complaint. REVIEW OF SYSTEMS: 12 point ROS reviewed with patient. Pertinent positives mentioned above. Otherwise negative. PHYSICAL EXAM: GENERAL: Alert, weak, awake oriented x 3 HEENT: EOMI, Sclera non icteric, moist mucosa NECK: Supple, no JVD, trachea midline LUNGS: Diminished breath sounds bilaterally. No wheezes HEART: Regular rate and rhythm. Normal S1 and S2, without murmurs ABD: Abdomen soft, nontender. Bowel sounds present EXT: No clubbing cyanosis or edema NEURO: Alert and oriented to person, follows commands Vital Signs (last 8hr) Date Time Temp Pulse Resp B/P (MAP) Pulse Ox O2 Delivery O2 Flow Rate FiO2 09/20/24 18:44 102 18 09/20/24 18:44 105 18 N/A Room Air 21 09/20/24 17:12 98.1 102 18 139/76 95 Room Air 09/20/24 11:35 96 18 09/20/24 11:34 18 N/A Room Air 21 09/20/24 11:08 98.2 96 18 109/67 95 Room Air LABS: Hematology Labs: Test 09/20/24 04:09 Range/Units White Blood Count 7.5 4.8-10.8 K/uL Red Blood Count 2.45 L 4.50-6.20 MIL/uL Hemoglobin 7.4 L 14.0-18.0 g/dL Hematocrit 22.4 L 42-54 % Mean Corpuscular Volume 91.4 79-99 fL Mean Corpuscular Hemoglobin 30.2 27.0-33.0 pg Mean Corpuscular Hemoglobin Concent 33.0 32.0-36.0 g/dL Red Cell Distribution Width 14.0 11.0-15.5 % Platelet Count 102 L 130-400 K/uL Mean Platelet Volume 9.9 7.5-10.5 fL Nucleated Red Blood Cells 0.0 0.0-0.19 % Chemistry Labs: Test 09/20/24 17:19 09/20/24 04:09 09/18/24 19:07 Range/Units Whole Blood Glucose 98 70-110 MG/DL Sodium Level 139 136-145 mmol/L Potassium Level 2.9 *L 3.5-5.1 mmol/L Chloride Level 103 101-111 mmol/L Carbon Dioxide Level 31 21-32 mmol/L Blood Urea Nitrogen 30 H 7-18 mg/dL Creatinine 1.3 0.5-1.3 mg/dL Glomerular Filtration Rate Calc 56 >90 mL/min Random Glucose 110 H 70-105 mg/dL Total Calcium 8.0 L 8.5-10.1 mg/dL Bedside Glucose Comment Notified Nurse DIAGNOSTICS / RADIOLOGY RESULTS: [ ] PLAN 09/19/24: For now, going to continue current management for the patient. He is going to continue on antibiotic therapy as ordered with IV Zosyn due to suspicion of pneumonia probably aspiration type. We will await the MBSS that is planned for today. Will continue on cardiac management per the Cardiology team/CTVS. We will repeat surveillance labs in morning. We will follow the recommendation of the CTS and we will intervene if necessary. We will continue to provide general supportive care, GI and DVT prophylaxis. Further orders per attending MD and hospital course. 09/20/2024: For now, going to continue current management for the patient. Patient will continue on cardiac management per the Cardiology team/CTVS. Considering the failed MBSS, the patient is on a NGT and I am going to start the patient on feedings with Vital AF we will start at a rate of 30 mL/hour we will increase by 5 mL with a goal rate of 50 cc/hour. We will consult the dietitian to further direct the caloric needs and adjust feedings as necessary. We will repeat surveillance labs in morning. We will follow the recommendation of the CTS and we will intervene if necessary. We will continue to provide general supportive care, GI and DVT prophylaxis. Further orders per attending MD and hospital course. NEURO: Minimize central acting medications as possible. Maintain fall precautions, adequate lighting during the day PULMONARY: Supplemental 02 as needed. Maintain aspiration precautions at all times CARDIOVASCULAR: Follow hemodynamics. Vital signs per facility protocol GI & NUTRITION: Continue with nutritional support. Continue stool softeners and laxatives as needed. KIDNEYS & ELECTROLYTES: Strict monitoring of intake, output and overall fluid balance. Avoid nephrotoxic medications to the extent possible. Medications to be dosed according to renal function. Monitor electrolytes and replace as needed ENDOCRINE: Maintain blood glucose between 100-180 at all times. Hypoglycemia protocol in place INFECTIOUS DISEASE: Trend temperature, WBC and procalcitonin level Follow cultures, deescalate antibiotics as soon as possible. Panculture if new onset fever ONCOLOGY/HEMATOLOGY/COAGULATION: Monitor for s/s of bleeding Monitor hemoglobin, coagulation studies as needed SKIN: Pressure ulcer prevention per facility protocol Specialty mattress ORTHO/REHAB: Continue PT/OT Prophylaxis: Continue GI and DVT prophylaxis Code Status: Full Resuscitation Disposition: TBD Other: Patient was seen and case was discussed with yasmin LEOS. Plan was discussed and agreed upon. ARMANDO BRUNO CLINICAL SAFETY MANAGER September 20, 2024 18:58
--- NOTE | 2024-09-20 20:00 | NUR ---
Paged button maker and installer for [employer], Rosina Marr, answered page. Informed of pt being on tube feeding but did not have scheduled flushes and was still on Regular insulin scheduled ACHS. Ordered 100mL flush q6 and to place pt on "lowest sliding scale" of insulin, repeated back order.
[2024-09-20] MEDS: INSULIN humuLIN R 100 UNIT/ML 3ML SQ SCH (23:35)
[2024-09-21] VITALS (12 sets, daily range): BP systolic 104–132; BP diastolic 61–79; PULSE 88–108; RESP 16–18; TEMP 98.2–99.8; O2SAT 95–99
[2024-09-21 03:38] LABS: HEMATOCRIT 23.2 % (42-54); MEAN CORPUSCULAR HEMOGLOBIN 30.2 pg (27.0-33.0); MEAN CORPUSCULAR HGB CONC 33.2 g/dL (32.0-36.0); RED BLOOD CELL COUNT(AUTO) 2.55 MIL/uL (4.50-6.20); RED CELL DISTRIBUTION WIDTH 14.1 % (11.0-15.5); WHITE BLOOD COUNT (AUTO) 6.8 K/uL (4.8-10.8)
[2024-09-21 03:56] LABS: CREATININE 1.3 mg/dL (0.5-1.3); POTASSIUM 3.3 mmol/L (3.5-5.1)
--- NOTE | 2024-09-21 08:26 | HMCIMG ---
CHEST 1VW HISTORY: Post CABG COMPARISON: 09/21/1999 FINDINGS: A frontal projection of the chest was obtained. Prominent interstitial markings are seen with possible superimposed infiltrates. Poststernotomy changes are seen. The heart is enlarged. Degenerative changes of the thoracolumbar spine are present. All the lines and tubes are again seen in place. No evidence of aortic calcification is seen. IMPRESSION: 1. Prominent interstitial markings are seen with possible superimposed infiltrates.
--- NOTE | 2024-09-21 08:43 | PN ---
This is a 78-year-old male with a history of coronary artery disease status post PTCA/PCI of the LAD in 2014 with subsequent PCI to the obtuse marginal in 2017, hypertension, hyperlipidemia, prediabetes and chronic diastolic heart failure. He underwent elective left heart catheterization 09/15/2024 which showed severe three-vessel coronary artery disease with 70% ostial stenosis of the left internal carotid artery and 80% proximal stenosis of the right vertebral artery. Preop echocardiogram 09/15/2024 shows an ejection fraction of 60-65%. He underwent CABG x4 with TANG to LAD, reverse saphenous vein graft from the aorta to the 1st diagonal, reverse saphenous vein graft from the aorta to the ramus, reverse saphenous vein graft from the aorta to the PDA on 09/16/2024. He underwent modified barium swallow study 09/19/2024 due to suspicion for pneumonia. He failed the swallow study and an NG tube was subsequently placed in order to administer medications. White blood count 6.8, hemoglobin 7.7 (12.2 on admission), hematocrit 23.2, platelets 145, creatinine 1.3, potassium 3.3. His most recent blood pressure is 109/67. He is currently in sinus rhythm with heart rates in the 80s to 90s. Chest x-ray this morning shows clear lungs without evidence of effusion or pneumothorax. On exam, he is in no acute distress, NG tube in place, regular rate and rhythm, mildly tachycardic, lungs are clear to auscultation, no lower extremity edema is noted. He reports excess mucus production due to the NG tube. He denies chest pain, shortness or breath, weakness or dizziness. Assessment: 1. Severe three-vessel coronary artery disease. 2. Status post CABG x4 09/16/2024. 3. Preserved LVEF. 4. Left internal carotid artery stenosis, right vertebral artery stenosis. 5. Sinus tachycardia. 6. Postoperative anemia. 7. NG tube in place due to suspicion for aspiration. 8. Hypokalemia. Plan: 1. He underwent elective left heart catheterization 09/15/2024 revealing severe three-vessel coronary artery disease. He is status post CABG x4 09/16/2024. He underwent a swallow study due to concern for aspiration. An NG tube was placed after failing the swallow study. 2. Continue aspirin 81 mg once daily, atorvastatin 80 mg once daily, metoprolol tartrate 25 mg twice daily and furosemide 20 mg twice daily. 3. Recommend dual antiplatelet therapy with aspirin and clopidogrel x6 months for secondary prevention of MACCE. We will initiate clopidogrel 75 mg once daily. 4. Replace potassium. 5. We will follow the patient. Vitals/Labs Vital Signs Date Time Temp Pulse Resp B/P (MAP) Pulse Ox O2 Delivery O2 Flow Rate FiO2 09/21/24 08:20 98.8 96 16 109/67 95 Room Air 09/21/24 07:05 21 09/20/24 20:00 0 Laboratory Tests 09/21/24 03:25 DOUG KINCAID September 21, 2024 08:43
[2024-09-21] MEDS: LACTULOSE 20 GM/30 ML UDCUP PO PRN (09:55)
--- NOTE | 2024-09-21 12:17 | PN ---
SUBJECTIVE: The patient is postop day #5 from a coronary artery bypass grafting. His postop course has been complicated by aspiration and he is currently n.p.o., receiving tube feeds. From a cardiac standpoint, the patient has been stable. OBJECTIVE: VITAL SIGNS: Reveal temperature 98.8, blood pressure is 104/67, pulse 96, respirations 16, oxygen saturation 95% on room air. HEENT: Reveals normocephalic, atraumatic. He has a nasogastric tube, through which he is receiving tube feeds at 50 mL an hour. CHEST: His sternal wound is clean, dry, and intact. His chest tubes are out. HEART: S1 and S2 and regular. LUNGS: Unlabored at rest and clear to auscultation. ABDOMEN: Flat with positive bowel sounds. IMAGING STUDIES: His chest x-ray shows clear lung ramos. ASSESSMENT AND PLAN: * Status post coronary artery bypass grafting. Continue aspirin, Lasix, metoprolol, sternal precautions, and continue in-house cardiac rehab. * Hypercholesterolemia. 80 mg p.o. at bedtime, low cholesterol, cardiac diet. * DVT prophylaxis. Lovenox subQ daily. * History of aspiration. Continue tube feeds and speech therapy. Repeat swallow study in the next couple of days. TID: [id number] RECEIPT: [id number]
--- NOTE | 2024-09-21 15:49 | NUR ---
CM NOTE CLINICAL UPDATES SENT TO SAMANTHA REP AT [facility]. STATES RECEIVED WILL REVIEW.
--- NOTE | 2024-09-21 16:01 | PN ---
[facility] PROGRESS NOTE Date Patient Seen: September 21, 2024 Time of Visit: 15:59 Supervising Physician: Dr. Edgar Primary Care Physician: [] Outpatient Specialists: [ ] Inpatient Consults: [SHC, CTS] PROBLEM LIST: Coronary artery disease, s/p remote stenting, pending CABG Carotid artery stenosis, pending outpatient intervention Vertebral artery stenosis JULIA on admission, resolved Chronic diastolic heart failure Hyperkalemia, resolved Anemia of chronic disease Left lobar pneumonia Dysphagia failed MBSS INTERVAL HISTORY: 09/17/2024: At the time of my evaluation, the patient was in staff nurse reports no events overnight. The patient is on Oxymizer and is noted elevated blood pressure readings data today showed a interval increase of WBCs 13.5, H&H 8.9/27.5 and a platelet count of 1 chemistry panel today was unremarkable. Currently, the patient remains on a Levophed, lidocaine, nitroglycerin and epinephrine drip. No new complaint. 09/18/2024: At the time of my evaluation, the patient is lying in bed. Per the staff nurse, no acute events overnight. The patient remains on nasal cannula on the monitor is hemodynamically stable. Laboratory data today showed improved WBCs to 11.1 chemistry panel showed stable renal parameters otherwise no changes of concern imaging of the chest today, showed no acute intrapulmonary changes. Currently, the patient continues on furosemide, aspirin, atorvastatin and Lovenox. No other complaint. 09/19/2024: At the time of my evaluation, the patient was sitting up at the bedside chair. Per the staff nurse, no acute events overnight. The patient is pending a MBSS today. He remains on a nasal cannula and hemodynamically stable on the monitor. Laboratory data today shows no major changes of concern. Chest imaging was unremarkable. Patient continues on furosemide, Lovenox, Zosyn, atorvastatin and is to start on metoprolol today. No other complaint. 09/20/2024: At the time of my evaluation, the patient was sitting up to the bedside chair. The patient now has a NG tube in place per the staff nurse this is secondary to failing his MBSS yesterday. The patient remains on room air and with optimal oxygen saturation. He is otherwise hemodynamically stable. Laboratory data today was noticeable for a hemoglobin of 7.4, hematocrit of 22.4 and a platelet count of 102. Chemistry panel was notable for a sodium of 139, potassium of 2.9, chloride of 103, CO2 of 31, BUN is 30, creatinine of 1.3 and a GFR of 56. Chest x-ray showed prominent interstitial markings with superimposed infiltrates. Currently, the patient remains on metoprolol, Lovenox, furosemide, aspirin, and atorvastatin. The patient is also on empiric antibiotic therapy with IV Zosyn. No other complaint. 09/21/2024: At the time of my evaluation, the patient was lying in bed. He remains with NGT and enteral feedings. So far tolerating well. Patient has reached a goal rate of 50 cc/hour. He remains on room air and with optimal oxygen saturation. Otherwise hemodynamically stable on the monitor. Laboratory data today was notable for a slightly low potassium of 3.3. Chest imaging today was unremarkable. No other complaint. REVIEW OF SYSTEMS: 12 point ROS reviewed with patient. Pertinent positives mentioned above. Otherwise negative. PHYSICAL EXAM: GENERAL: Alert, weak, awake oriented x 3 HEENT: EOMI, Sclera non icteric, moist mucosa NECK: Supple, no JVD, trachea midline LUNGS: Diminished breath sounds bilaterally. No wheezes HEART: Regular rate and rhythm. Normal S1 and S2, without murmurs ABD: Abdomen soft, nontender. Bowel sounds present EXT: No clubbing cyanosis or edema NEURO: Alert and oriented to person, follows commands Vital Signs (last 8hr) Date Time Temp Pulse Resp B/P (MAP) Pulse Ox O2 Delivery O2 Flow Rate FiO2 09/21/24 12:00 98.2 100 18 132/79 99 Room Air 09/21/24 11:22 88 18 09/21/24 08:20 98.8 96 16 109/67 95 Room Air LABS: Hematology Labs: Test 09/21/24 03:25 Range/Units White Blood Count 6.8 4.8-10.8 K/uL Red Blood Count 2.55 L 4.50-6.20 MIL/uL Hemoglobin 7.7 L 14.0-18.0 g/dL Hematocrit 23.2 L 42-54 % Mean Corpuscular Volume 91.0 79-99 fL Mean Corpuscular Hemoglobin 30.2 27.0-33.0 pg Mean Corpuscular Hemoglobin Concent 33.2 32.0-36.0 g/dL Red Cell Distribution Width 14.1 11.0-15.5 % Platelet Count 145 # 130-400 K/uL Mean Platelet Volume 10.2 7.5-10.5 fL Nucleated Red Blood Cells 0.0 0.0-0.19 % Chemistry Labs: Test 09/21/24 12:05 09/21/24 03:25 Range/Units Whole Blood Glucose 129 H 70-110 MG/DL Sodium Level 139 136-145 mmol/L Potassium Level 3.3 L 3.5-5.1 mmol/L Chloride Level 105 101-111 mmol/L Carbon Dioxide Level 30 21-32 mmol/L Blood Urea Nitrogen 34 H 7-18 mg/dL Creatinine 1.3 0.5-1.3 mg/dL Glomerular Filtration Rate Calc 56 >90 mL/min Random Glucose 129 H 70-105 mg/dL Total Calcium 7.9 L 8.5-10.1 mg/dL DIAGNOSTICS / RADIOLOGY RESULTS: [ ] PLAN 09/19/24: For now, going to continue current management for the patient. He is going to continue on antibiotic therapy as ordered with IV Zosyn due to suspicion of pneumonia probably aspiration type. We will await the MBSS that is planned for today. Will continue on cardiac management per the Cardiology team/CTVS. We will repeat surveillance labs in morning. We will follow the recommendation of the CTS and we will intervene if necessary. We will continue to provide general supportive care, GI and DVT prophylaxis. Further orders per attending MD and hospital course. 09/20/2024: For now, going to continue current management for the patient. Patient will continue on cardiac management per the Cardiology team/CTVS. Considering the failed MBSS, the patient is on a NGT and I am going to start the patient on feedings with Vital AF we will start at a rate of 30 mL/hour we will increase by 5 mL with a goal rate of 50 cc/hour. We will consult the dietitian to further direct the caloric needs and adjust feedings as necessary. We will repeat surveillance labs in morning. We will follow the recommendation of the CTS and we will intervene if necessary. We will continue to provide general supportive care, GI and DVT prophylaxis. Further orders per attending MD and hospital course. 09/21/2024: For now, we are going to continue current management for the patient. Continue with enteral feedings, registered dietitian has been requested and we will follow the recommendations for further feedings. We will also follow the physical therapist management. Patient will continue on cardiac management per the Cardiology team/CTVS. We will repeat surveillance labs in morning. Encouraged the patient on IS use. He is to continue participating wit h physical therapy. Case management working on IRU. We will follow the recommendation of the CTVS and we will intervene if necessary. We will continue to provide general supportive care, GI and DVT prophylaxis. Further orders per attending MD and hospital course. NEURO: Minimize central acting medications as possible. Maintain fall precautions, adequate lighting during the day PULMONARY: Supplemental 02 as needed. Maintain aspiration precautions at all times CARDIOVASCULAR: Follow hemodynamics. Vital signs per facility protocol GI & NUTRITION: Continue with nutritional support. Continue stool softeners and laxatives as needed. KIDNEYS & ELECTROLYTES: Strict monitoring of intake, output and overall fluid balance. Avoid nephrotoxic medications to the extent possible. Medications to be dosed according to renal function. Monitor electrolytes and replace as needed ENDOCRINE: Maintain blood glucose between 100-180 at all times. Hypoglycemia protocol in place INFECTIOUS DISEASE: Trend temperature, WBC and procalcitonin level Follow cultures, deescalate antibiotics as soon as possible. Panculture if new onset fever ONCOLOGY/HEMATOLOGY/COAGULATION: Monitor for s/s of bleeding Monitor hemoglobin, coagulation studies as needed SKIN: Pressure ulcer prevention per facility protocol Specialty mattress ORTHO/REHAB: Continue PT/OT Prophylaxis: Continue GI and DVT prophylaxis Code Status: Full Resuscitation Disposition: TBD Other: Patient was seen and case was discussed with yasmin LEOS. Plan was discussed and agreed upon. ARMANDO BRUNO NP September 21, 2024 16:00
[2024-09-21] MEDS: cloPIDOgrel 75MG TAB PO SCH (22:06)
[2024-09-22] VITALS (15 sets, daily range): BP systolic 94–118; BP diastolic 53–73; PULSE 79–110; RESP 16–18; TEMP 97.9–99.5; O2SAT 97–100
[2024-09-22] MEDS: DiphenhydrAMINE HCL 50 MG/ML VIAL IV ONE (03:00)
[2024-09-22 04:06] LABS: HEMATOCRIT 24.2 % (42-54); MEAN CORPUSCULAR HEMOGLOBIN 29.6 pg (27.0-33.0); MEAN CORPUSCULAR HGB CONC 32.6 g/dL (32.0-36.0); MEAN CORPUSCULAR VOLUME 90.6 fL (79-99); RED BLOOD CELL COUNT(AUTO) 2.67 MIL/uL (4.50-6.20); WHITE BLOOD COUNT (AUTO) 6.6 K/uL (4.8-10.8)
[2024-09-22 04:33] LABS: CREATININE 1.2 mg/dL (0.5-1.3); POTASSIUM 3.2 mmol/L (3.5-5.1)
--- NOTE | 2024-09-22 11:15 | NUR ---
[facility] Approval[place]CP [place] approved 202. Patient currently has an NGT. Need ST recs and plan for NGT. CM to continue to follow. Anticipate dc in the next 2-3 days. Patient also has fever and need of Provena vac. CM to follow up on final needs. Possible change in DCP to [facility] if prolonged medical care is needed.
--- NOTE | 2024-09-22 11:18 | NUR ---
[facility] [place] Update Patient with dysphagia and has NGT. Pending speech therapy re-evaluation. CM to follow up on need. Anticipate dc in next 3-4 days. [place] has approved the IRU request. Addendum: 09/22/24 at 1120 by LIZZIE NIX Amended: Links added.
--- NOTE | 2024-09-22 14:09 | NUR ---
Nutrition f/u Reviewed labs, notes, and medications. BMI fo 21.4, K 3.2 (L), elevated BUN 29, Cr WNL, BG 134(H), Ca 7.9(L), vit. D 24.2, Iv abx, lasix per chart review. NG tube in place, failed MBSS, pending re-eval, on Vital AF 1.2, wt via standing scale, last BM 09/21/24, 400 ml balance 09/21/24 per nursing. TF rec appropriate to meet Pt's needs. Start TF rate @ 25 ml/hr for the first 4 hours, increase 5 ml Q2H until you reach goal rate. If residual >500 ml stop TF for 2 hours and then restart if residual continues to be >500 ml stop TF and notify MD Recommendations -Provide Jevity 1.5 @ 55 ml/hr x 22 hrs + 200 Q4H Provides: 1815 kcals, 77 gm pro, 2119 ml per day -If bolus provide: 5 cans of Jevity 1.5 (times: 0900,1400, 1900, 0000,0500) 30 ml before and after each feed -Monitor BM -If no BM >3 days consider stool softener -Monitor electrolytes -Replenish electrolytes per protocol -Monitor wts -Reweigh as able -Provide vit. D supplement per vit. D 24.1 -Provide MVI QD -Recommend Pt to follow up with PCP -Monitor TF tolerance + need for TF adjustment -Monitor goals of care RD to follow + available for consult per protocol Addendum: 09/22/24 at [address] Amended: Links added.
--- NOTE | 2024-09-22 17:43 | PN ---
[facility] PROGRESS NOTE Date Patient Seen: September 22, 2024 Time of Visit: 17:43 Supervising Physician: Dr. Edgar Primary Care Physician: [] Outpatient Specialists: [ ] Inpatient Consults: [SHC, CTS] PROBLEM LIST: Coronary artery disease, s/p remote stenting, pending CABG Carotid artery stenosis, pending outpatient intervention Vertebral artery stenosis JULIA on admission, resolved Chronic diastolic heart failure Hyperkalemia, resolved Anemia of chronic disease Left lobar pneumonia Dysphagia failed MBSS INTERVAL HISTORY: 09/17/2024: At the time of my evaluation, the patient was in staff nurse reports no events overnight. The patient is on Oxymizer and is noted elevated blood pressure readings data today showed a interval increase of WBCs 13.5, H&H 8.9/27.5 and a platelet count of 1 chemistry panel today was unremarkable. Currently, the patient remains on a Levophed, lidocaine, nitroglycerin and epinephrine drip. No new complaint. 09/18/2024: At the time of my evaluation, the patient is lying in bed. Per the staff nurse, no acute events overnight. The patient remains on nasal cannula on the monitor is hemodynamically stable. Laboratory data today showed improved WBCs to 11.1 chemistry panel showed stable renal parameters otherwise no changes of concern imaging of the chest today, showed no acute intrapulmonary changes. Currently, the patient continues on furosemide, aspirin, atorvastatin and Lovenox. No other complaint. 09/19/2024: At the time of my evaluation, the patient was sitting up at the bedside chair. Per the staff nurse, no acute events overnight. The patient is pending a MBSS today. He remains on a nasal cannula and hemodynamically stable on the monitor. Laboratory data today shows no major changes of concern. Chest imaging was unremarkable. Patient continues on furosemide, Lovenox, Zosyn, atorvastatin and is to start on metoprolol today. No other complaint. 09/20/2024: At the time of my evaluation, the patient was sitting up to the bedside chair. The patient now has a NG tube in place per the staff nurse this is secondary to failing his MBSS yesterday. The patient remains on room air and with optimal oxygen saturation. He is otherwise hemodynamically stable. Laboratory data today was noticeable for a hemoglobin of 7.4, hematocrit of 22.4 and a platelet count of 102. Chemistry panel was notable for a sodium of 139, potassium of 2.9, chloride of 103, CO2 of 31, BUN is 30, creatinine of 1.3 and a GFR of 56. Chest x-ray showed prominent interstitial markings with superimposed infiltrates. Currently, the patient remains on metoprolol, Lovenox, furosemide, aspirin, and atorvastatin. The patient is also on empiric antibiotic therapy with IV Zosyn. No other complaint. 09/21/2024: At the time of my evaluation, the patient was lying in bed. He remains with NGT and enteral feedings. So far tolerating well. Patient has reached a goal rate of 50 cc/hour. He remains on room air and with optimal oxygen saturation. Otherwise hemodynamically stable on the monitor. Laboratory data today was notable for a slightly low potassium of 3.3. Chest imaging today was unremarkable. No other complaint. 09/22/2024: At the time of my evaluation, the patient was sitting up to the bedside chair. The staff reports no acute events overnight. The patient remains on room air and on the monitor mechanically stable. Laboratory data today was notable for a H&H of 7.9/24.2 and a potassium count of 3.2 the patient remains on NGT additional support. Also, the patient may on antibiotic therapy with Zosyn. No other complaint. REVIEW OF SYSTEMS: 12 point ROS reviewed with patient. Pertinent positives mentioned above. Otherwise negative. PHYSICAL EXAM: GENERAL: Alert, weak, awake oriented x 3 HEENT: EOMI, Sclera non icteric, moist mucosa NECK: Supple, no JVD, trachea midline LUNGS: Diminished breath sounds bilaterally. No wheezes HEART: Regular rate and rhythm. Normal S1 and S2, without murmurs ABD: Abdomen soft, nontender. Bowel sounds present EXT: No clubbing cyanosis or edema NEURO: Alert and oriented to person, follows commands Vital Signs (last 8hr) Date Time Temp Pulse Resp B/P (MAP) Pulse Ox O2 Delivery O2 Flow Rate FiO2 09/22/24 15:30 99.0 100 18 118/64 97 Room Air 09/22/24 11:27 86 18 09/22/24 11:00 99.0 87 17 100/58 100 Room Air LABS: Hematology Labs: Test 09/22/24 03:49 Range/Units White Blood Count 6.6 4.8-10.8 K/uL Red Blood Count 2.67 L 4.50-6.20 MIL/uL Hemoglobin 7.9 L 14.0-18.0 g/dL Hematocrit 24.2 L 42-54 % Mean Corpuscular Volume 90.6 79-99 fL Mean Corpuscular Hemoglobin 29.6 27.0-33.0 pg Mean Corpuscular Hemoglobin Concent 32.6 32.0-36.0 g/dL Red Cell Distribution Width 14.0 11.0-15.5 % Platelet Count 155 130-400 K/uL Mean Platelet Volume 10.2 7.5-10.5 fL Nucleated Red Blood Cells 0.0 0.0-0.19 % Chemistry Labs: Test 09/22/24 15:43 09/22/24 03:49 Range/Units Whole Blood Glucose 104 70-110 MG/DL Sodium Level 139 136-145 mmol/L Potassium Level 3.2 L 3.5-5.1 mmol/L Chloride Level 105 101-111 mmol/L Carbon Dioxide Level 30 21-32 mmol/L Blood Urea Nitrogen 29 H 7-18 mg/dL Creatinine 1.2 0.5-1.3 mg/dL Glomerular Filtration Rate Calc 62 >90 mL/min Random Glucose 122 H 70-105 mg/dL Total Calcium 7.9 L 8.5-10.1 mg/dL DIAGNOSTICS / RADIOLOGY RESULTS: [ ] PLAN 09/19/24: For now, going to continue current management for the patient. He is going to continue on antibiotic therapy as ordered with IV Zosyn due to suspicion of pneumonia probably aspiration type. We will await the MBSS that is planned for today. Will continue on cardiac management per the Cardiology team/CTVS. We will repeat surveillance labs in morning. We will follow the recommendation of the CTS and we will intervene if necessary. We will continue to provide general supportive care, GI and DVT prophylaxis. Further orders per attending MD and hospital course. 09/20/2024: For now, going to continue current management for the patient. Patient will continue on cardiac management per the Cardiology team/CTVS. Considering the failed MBSS, the patient is on a NGT and I am going to start the patient on feedings with Vital AF we will start at a rate of 30 mL/hour we will increase by 5 mL with a goal rate of 50 cc/hour. We will consult the dietitian to further direct the caloric needs and adjust feedings as necessary. We will repeat surveillance labs in morning. We will follow the recommendation of the CTS and we will intervene if necessary. We will continue to provide general supportive care, GI and DVT prophylaxis. Further orders per attending MD and hospital course. 09/21/2024: For now, we are going to continue current management for the patient. Continue with enteral feedings, registered dietitian has been requested and we will follow the recommendations for further feedings. We will also follow the physical therapist management. Patient will continue on cardiac management per the Cardiology team/CTVS. We will repeat surveillance labs in morning. Encouraged the patient on IS use. He is to continue participating with physical therapy. Case management working on IRU. We will follow the recommendation of the CTVS and we will intervene if necessary. We will continue to provide general supportive care, GI and DVT prophylaxis. Further orders per attending MD and hospital course. 09/22/2024: For now, going to continue current management for the patient. He will continue on nutritional support as guided by the registered dietitian and we will await MBSS retest by the speech therapist. I discussed the findings and plan for further management with the patient. We will monitor the patient's progress and response to management. We will continue to provide general supportive care, GI and DVT prophylaxis. Dispo per primary. NEURO: Minimize central acting medications as possible. Maintain fall precautions, adequate lighting during the day PULMONARY: Supplemental 02 as needed. Maintain aspiration precautions at all times CARDIOVASCULAR: Follow hemodynamics. Vital signs per facility protocol GI & NUTRITION: Continue with nutritional support. Continue stool softeners and laxatives as needed. KIDNEYS & ELECTROLYTES: Strict monitoring of intake, output and overall fluid balance. Avoid nephrotoxic medications to the extent possible. Medications to be dosed according to renal function. Monitor electrolytes and replace as needed ENDOCRINE: Maintain blood glucose between 100-180 at all times. Hypoglycemia protocol in place INFECTIOUS DISEASE: Trend temperature, WBC and procalcitonin level Follow cultures, deescalate antibiotics as soon as possible. Panculture if new onset fever ONCOLOGY/HEMATOLOGY/COAGULATION: Monitor for s/s of bleeding Monitor hemoglobin, coagulation studies as needed SKIN: Pressure ulcer prevention per facility protocol Specialty mattress ORTHO/REHAB: Continue PT/OT Prophylaxis: Continue GI and DVT prophylaxis Code Status: Full Resuscitation Disposition: TBD Other: Patient was seen and case was discussed with yasmin LEOS. Plan was discussed and agreed upon. ARMANDO BRUNO DEAN OF EDUCATION September 22, 2024 17:43
[2024-09-23] VITALS (14 sets, daily range): BP systolic 97–127; BP diastolic 57–72; PULSE 89–113; RESP 16–19; TEMP 97.8–99.7; O2SAT 97–100
--- NOTE | 2024-09-23 07:45 | PN ---
[facility] PRO[facility] Date Patient Seen: September 23, 2024 Time of Visit: 07:30 Problem List: 1. Severe three-vessel coronary artery disease. 2. Status post CABG x4 09/16/2024. 3. Preserved LVEF preop 65% 09/15/2024 4. Left internal carotid artery stenosis >70%, right vertebral artery stenosis. 5. Sinus tachycardia. 6. Postoperative anemia. 7. NG tube in place due to suspicion for aspiration. Interval History: Pt POD #6, Continues with aspiration precautions. He has NGT in place, pending a repeat barium swallow in a couple of days after regaining some strength. CXR pending today. He has severe LICA stenosis and BP is running on the low side with mildly elevated HR despite betablocker. He has diuretic still on board, we will hold today and monitor his response. Plan to repeat chemistries and bnp in am. Physical Examination: GENERAL: [Elderly, frail, No acute distress.] HEAD: [Normal with no signs of head trauma.] EYES: [PERRLA, EOMI, conjunctiva and sclera normal.] ENT: [Hearing grossly intact, normal oropharynx.] NECK: [Supple without JVD. There is no tenderness, lymphadenopathy, or masses. No thyromegaly. Normal carotid upstrokes without bruits.] LUNGS: [Diminished breath sounds bilaterally. HEART: [Normal rate and rhythm. Normal S1 and S2 without murmurs, gallop or rub.] VASC: [Peripheral pulses +2 bilaterally.] ABD: [Bowel sounds normal, soft, nontender, no masses, no organomegaly. No mark ble bruits.] : [Not examined] LYMPH: [No lymphadenopathy noted.] EXT: [No clubbing, cyanosis or edema.] SKIN: [Sternotomy incision appears clean without purulent discharge or bleeding.] NEURO: [Awake, alert, and oriented x3. No focal sensory or strength deficits noted.] Laboratory: [ ] Hematology Labs: Test 09/22/24 03:49 Range/Units White Blood Count 6.6 4.8-10.8 K/uL Red Blood Count 2.67 L 4.50-6.20 MIL/uL Hemoglobin 7.9 L 14.0-18.0 g/dL Hematocrit 24.2 L 42-54 % Mean Corpuscular Volume 90.6 79-99 fL Mean Corpuscular Hemoglobin 29.6 27.0-33.0 pg Mean Corpuscular Hemoglobin Concent 32.6 32.0-36.0 g/dL Red Cell Distribution Width 14.0 11.0-15.5 % Platelet Count 155 130-400 K/uL Mean Platelet Volume 10.2 7.5-10.5 fL Nucleated Red Blood Cells 0.0 0.0-0.19 % Chemistry Labs: Test 09/23/24 05:09 09/22/24 03:49 Range/Units Whole Blood Glucose 132 H 70-110 MG/DL Sodium Level 139 136-145 mmol/L Potassium Level 3.2 L 3.5-5.1 mmol/L Chloride Level 105 101-111 mmol/L Carbon Dioxide Level 30 21-32 mmol/L Blood Urea Nitrogen 29 H 7-18 mg/dL Creatinine 1.2 0.5-1.3 mg/dL Glomerular Filtration Rate Calc 62 >90 mL/min Random Glucose 122 H 70-105 mg/dL Total Calcium 7.9 L 8.5-10.1 mg/dL Diagnostics / Radiology: PATIENT: JOEY PAEZ JR MR#: [id number] : 1945 SEX: M AGE: 78 LOCATION: 2AH ORDER 230 STATUS: ADM IN REPORT#: [id number] SERVICE 0400 REASON: s/p CABG ORDERING PHYSICIAN: TOMAAS AMARO MD PROCEDURE: CXR1VW - CHEST 1VW CHEST 1VW HISTORY: Post CABG COMPARISON: 09/21/1999 FINDINGS: A frontal projection of the chest was obtained. Prominent interstitial markings are seen with possible superimposed infiltrates. Poststernotomy changes are seen. The heart is enlarged. Degenerative changes of the thoracolumbar spine are present. All the lines and tubes are again seen in place. No evidence of aortic calcification is seen. IMPRESSION: 1. Prominent interstitial markings are seen with possible superimposed infiltrates. DICTATED BY: DARIUS MENSAH MD DATE: 09/21/24821 ELECTRONICALLY SIGNED BY: DARIUS MENSAH MD DATE: 09/21/24825 Impression and Plan: New onset dysphagia, post operatively. severe carotid stenosis to left side, advanced age. We we will r/o subacute CVA with MRI, perform CTA head/neck eval for stenosis severity with measurement Continue asa/plavix Monitor for arrhythmia Continue with supportive care NGT for feeds/meds Aspiration precautions. Continue statin hold lasix bmp/bnp in am CXR today ALEXANDER QUIÑONES NP September 23, 2024 07:45
--- NOTE | 2024-09-23 09:07 | NUR ---
[facility] Call Chart reviewed and case discussed with [facility] team. D[facility] remains to [facility]. Power has been approved. Pending ST re-evaluation in the next few days. Addendum: 09/23/24 at 0908 by LIZZIE NIX CM Amended: Links added.
--- NOTE | 2024-09-23 09:22 | HMCIMG ---
Exam Type: CHEST 1VW Clinical Information: eval infiltrates Comparison: None Findings: Pulmonary pattern is as before. No worrisome interval changes have taken place. Impression: Stable exam.
--- NOTE | 2024-09-23 16:45 | NUR ---
SPEECH THERAPY COMPLETED; MBSS RECOMMENDED FOR TOMORROW S: Pt SITTING UPRIGHT IN [facility] CHAIR UPON AIR ANALYSIS TECHNICIAN ARRIVAL. NO FAMILY PRESENT AT TIME OF VISIT UNTIL THE END OF THE SESSION (SISTERS CAME IN ROOM). Pt IN NO RESPIRATORY DISTRESS. Pt ALERT AND AGREEABLE TO SPEECH THERAPY. Pt CURRENTLY WITH NG TUBE IN PLACE. PER NURSE, PATIENT TOLERATING TUBE FEEDINGS WELL. O: Pt CURRENTLY TARGETING SWALLOWS GOALS. RESULTS ARE FOLLOWS: LTG#1: Pt WILL TOLERATE LEAST RESTRICTIVE DIET TO MEET NUTRITION/HYDRATION WITH NO S/S OF ASPIRATION. LTG#2: SKILLED EDUCATION Pt/FAMILY/STAFF. STG#1: Pt WILL PARTICIPATE IN LARYNGEAL ELEVATION/EXCURSION EXERCISES WITH 90% ACCURACY GIVEN MIN A: 80% ACCURACY WITH MIN A. STG#2: Pt WILL PARTICIPATE IN TONGUE BASE RETRACTION EXERCISES WITH 90% ACCURACY GIVEN MIN A: 80% ACCURACY WITH MIN A. STG#3: Pt WILL DEMONSTRATE A SWALLOW DELAY OF ONLY -2 SECONDS FOLLOWING THERMAL TACTILE STIMULATION WITH 90% ACC GIVEN MIN A: 90% ACC GIVEN MIN A STG#4: SKILLED EDUCATION Pt/FAMILY/STAFF: COMPLETED. A: Pt COOPERATIVE WITH ALL THERAPEUTIC TRIALS. PATIENT WITH IMPROVED VOCAL QUALITY AND PHARYNGEAL RESPONSE TRIGGER. P: RECOMMEND CONTINUED NPO, NG TUBE FEEDINGS UNTIL MBSS TOMORROW. AIR ANALYSIS TECHNICIAN COORDINATED WITH NURSE DOMINGUEZ ABOUT TREATMENT RESULTS. Addendum: 09/23/[address] BE JAFFE Amended: Links added.
--- NOTE | 2024-09-23 16:59 | NUR ---
Family notification Called daughter Neha Castorena to speak with her at her request. Call was not answered. Will make a second attempt before end of day.
--- NOTE | 2024-09-23 20:51 | PN ---
SUBJECTIVE: A 78-year-old status post coronary artery bypass graft, coursing postoperative day #7. OBJECTIVE: GENERAL: Awake, alert, afebrile, neurologically intact. VITAL SIGNS: Stable as recorded in the medical record. CHEST: Sternum stable. Incision sealed. LUNGS: Clear. EXTREMITIES: Warm, well perfused. No evidence of DVT, hematoma or infection. ASSESSMENT: Status post coronary artery bypass graft. PROBLEMS: * Dysphagia, unable to pass the modified swallow. The patient is swallowing better with thickened liquids. Continue NG tube for now. Continue occupational therapy. * Coronary artery disease. Continue aspirin and beta-mercedes, metoprolol 25 mg twice a day. * Fluid overload. Lasix 20 mg once daily. * Dyslipidemia. Lipitor 40 mg once daily. PLAN: Occupational therapy, physical therapy, cardiac rehabilitation and transfer to LTAC. TID: [id number] RECEIPT: [id number]
--- NOTE | 2024-09-23 22:40 | PN ---
[facility] PROGRESS NOTE Date Patient Seen: September 23, 2024 Time of Visit: 10:39 Supervising Physician: Uli Edgar MD Primary Care Physician: [] Outpatient Specialists: [ ] Inpatient Consults: [SHC, CTS] PROBLEM LIST: Carotid artery stenosisS/P Off-pump coronary artery bypass grafting x 4 vessel (left internal mammary to the LAD, reverse saphenous vein graft from the aorta to the first ) on 09/16/24 Vertebral artery stenosis JULIA on admission, resolved Chronic diastolic heart failure Hyperkalemia, resolved Anemia of chronic disease Left lobar pneumonia Dysphagia failed MBSS INTERVAL HISTORY: DOS 09/23/24: This is day#7 s/p CABG, Patient continues with the NG tube. Repeat MBSS pending. No major overnight events per RN. He has been accepted at IRU but pending 2nd eval for dysphagia. CT head and brain ordered to rule out CVA. Pt denies any headache, nause or vomiting. Pt also denies palpitations, sob or ches t pain at this time. REVIEW OF SYSTEMS: 12 point ROS reviewed with patient. Pertinent positives mentioned above. Otherwise negative. PHYSICAL EXAM: GENERAL: Alert, weak, awake oriented x 3 HEENT: EOMI, Sclera non icteric, moist mucosa NECK: Supple, no JVD, trachea midline LUNGS: clear breath sounds bilaterally. No wheezes HEART: Regular rate and rhythm. Normal S1 and S2, without murmurs ABD: Abdomen soft, nontender. Bowel sounds present EXT: No clubbing cyanosis or edema NEURO: Alert and oriented to person, follows commands Vital Signs (last 8hr) Date Time Temp Pulse Resp B/P (MAP) Pulse Ox O2 Delivery O2 Flow Rate FiO2 09/23/24 19:00 98.6 107 16 105/61 963 Room Air 09/23/24 18:25 109 18 N/A Room Air 21 09/23/24 18:23 113 18 09/23/24 16:00 97.9 107 19 127/61 98 Room Air LABS: Hematology Labs: Test 09/22/24 03:49 Range/Units White Blood Count 6.6 4.8-10.8 K/uL Red Blood Count 2.67 L 4.50-6.20 MIL/uL Hemoglobin 7.9 L 14.0-18.0 g/dL Hematocrit 24.2 L 42-54 % Mean Corpuscular Volume 90.6 79-99 fL Mean Corpuscular Hemoglobin 29.6 27.0-33.0 pg Mean Corpuscular Hemoglobin Concent 32.6 32.0-36.0 g/dL Red Cell Distribution Width 14.0 11.0-15.5 % Platelet Count 155 130-400 K/uL Mean Platelet Volume 10.2 7.5-10.5 fL Nucleated Red Blood Cells 0.0 0.0-0.19 % Chemistry Labs: Test 09/23/24 19:31 09/22/24 03:49 Range/Units Whole Blood Glucose 115 H 70-110 MG/DL Sodium Level 139 136-145 mmol/L Potassium Level 3.2 L 3.5-5.1 mmol/L Chloride Level 105 101-111 mmol/L Carbon Dioxide Level 30 21-32 mmol/L Blood Urea Nitrogen 29 H 7-18 mg/dL Creatinine 1.2 0.5-1.3 mg/dL Glomerular Filtration Rate Calc 62 >90 mL/min Random Glucose 122 H 70-105 mg/dL Total Calcium 7.9 L 8.5-10.1 mg/dL DIAGNOSTICS / RADIOLOGY RESULTS: [ ] IMAGING REPORT Signed PATIENT: JOEY PAEZ JR MR#: [id number] : 1945 SEX: M AGE: 78 LOCATION: 2A ORDER 3 STATUS: ADM IN REPORT#: [id number] SERVICE 0733 REASON: eval infiltrates ORDERING PHYSICIAN: ALEXANDER QUIÑONES NP PROCEDURE: CXR1VW - CHEST 1VW Exam Type: CHEST 1VW Clinical Information: eval infiltrates Comparison: None Findings: Pulmonary pattern is as before. No worrisome interval changes have taken place. Impression: Stable exam. DICTATED BY: ADELINE MICHELLE MD DATE: 09/23/24918 ELECTRONICALLY SIGNED BY: ADELINE MICHELLE MD DATE: 09/23/24953 PLAN pending repeat MBSS CT head and brai to rule out CVA cbc, bmp, mag and phos in am dispo to IRU pending repeat MBSS NEURO: Minimize central acting medications as possible. Maintain fall precautions, adequate lighting during the day PULMONARY: Supplemental 02 as needed. Maintain aspiration precautions at all times CARDIOVASCULAR: Follow hemodynamics. Vital signs per facility protocol GI & NUTRITION: Continue with nutritional support. Continue stool softeners and laxatives as needed. KIDNEYS & ELECTROLYTES: Strict monitoring of intake, output and overall fluid balance. Avoid nephrotoxic medications to the extent possible. Medications to be dosed according to renal function. Monitor electrolytes and replace as needed ENDOCRINE: Maintain blood glucose between 100-180 at all times. Hypoglycemia protocol in place INFECTIOUS DISEASE: Trend temperature, WBC and procalcitonin level Follow cultures, deescalate antibiotics as soon as possible. Panculture if new onset fever ONCOLOGY/HEMATOLOGY/COAGULATION: Monitor for s/s of bleeding Monitor hemoglobin, coagulation studies as needed SKIN: Pressure ulcer prevention per facility protocol Specialty mattress ORTHO/REHAB: Continue PT/OT Prophylaxis: Continue GI and DVT prophylaxis Code Status: Full Resuscitation Disposition: TBD Other: Patient was seen and case was discussed with yasmin LEOS. Plan was discussed and agreed upon. ATTESTATION BY PHYSICIAN I attest that I reviewed and discussed the case with the Physician Travelift Operator as well as agree with the Physician Travelift Operator's findings, plans of care, and docum entation above. Uli Griffin MD, NELLY J ARNP September 23, 2024 22:40
[2024-09-24] VITALS (13 sets, daily range): BP systolic 93–118; BP diastolic 50–65; PULSE 84–95; RESP 16–22; TEMP 98.7–99.7; O2SAT 94–100
[2024-09-24 04:51] LABS: HEMATOCRIT 25.1 % (42-54); MEAN CORPUSCULAR HEMOGLOBIN 30.3 pg (27.0-33.0); MEAN CORPUSCULAR HGB CONC 33.1 g/dL (32.0-36.0); MEAN CORPUSCULAR VOLUME 91.6 fL (79-99); RED BLOOD CELL COUNT(AUTO) 2.74 MIL/uL (4.50-6.20); RED CELL DISTRIBUTION WIDTH 14.2 % (11.0-15.5); WHITE BLOOD COUNT (AUTO) 8.8 K/uL (4.8-10.8)
[2024-09-24 05:01] LABS: CREATININE 1.2 mg/dL (0.5-1.3); MAGNESIUM 1.9 mg/dL (1.80-2.40); PHOSPHORUS 3.4 mg/dL (2.5-4.9); POTASSIUM 3.5 mmol/L (3.5-5.1)
[2024-09-24] MEDS: PoTASSium chloRIDE 20MEQ ER 20 MEQ ERTAB PO PRN (05:24)
--- NOTE | 2024-09-24 05:51 | NUR ---
per RN Ray unable to bring pt to CT right now,is backed up and pending and admission
--- NOTE | 2024-09-24 07:15 | PN ---
PROBLEM LIST: * Severe three-vessel coronary artery disease. * Status post remote angioplasty and stenting of the LAD. * A 70% left internal carotid artery stenosis with 80% stenosis of the right vertebral artery and tortuous left vertebral artery with kink lesions and a bovine arch orientation by carotid angiography, 09/15/2024. * Severe three-vessel coronary artery disease by cardiac catheterization and coronary arteriography, 09/15/2024. * Recurrent angina with features of destabilization. * Status post coronary artery bypass graft surgery with a TANG to the LAD, saphenous vein graft to the first diagonal, saphenous vein graft to the PDA and saphenous vein graft to the ramus intermedius by Dr. Selby, 09/16/2024. * Postoperative anemia, stable. * Postop dysphagia with questionable aspiration, being evaluated. * Hyperlipoproteinemia. This gentleman has been progressing nicely status post surgery; however, he unfortunately has had some problems with swallowing and questionable aspiration. The patient has been comfortable. He does have a nasogastric tube for feeding. He, however, appears to be feeling well with no other complaints. On questioning the patient, he currently states that he is not having any complaints of any kind. He has no obvious neurologic deficit by my assessment. The patient's vital signs have been stable. His temperature is 99, his respiratory rate is 16-18. His blood pressure is 100-115 systolic range. He is saturating at 98% on room air. An electrocardiogram was obtained today and reveals sinus rhythm with a rate in the 90-95 per minute range. The patient has early transitioned, which is similar to what he had preoperatively. There are no acute ST-T wave or T-wave changes, suggests an injury process. Laboratory studies this morning have revealed a white count of 8.8 with an H and H of 8.3 and 25.1 respectively. The platelet count is currently 273,000. The chemistries revealed a sodium of 141, a potassium of 3.5 being managed per protocol, chloride is 106, CO2 is 29, BUN is 30, creatinine is 1.2 with a GFR of 62. Random glucose is 157. The total calcium is low at 8.2 and the phosphorus is 3.4 with a magnesium of 1.9. This gentleman is currently maintained on clopidogrel, metoprolol, low-dose Lovenox, Zosyn, Atrovent, famotidine, baby aspirin, atorvastatin, and additional p.r.n. medications. This gentleman is being evaluated with a brain MRI. This will help to define if he has had any new onset events. There was an order for a CT angiography of the carotids; however, the patient recently had a carotid angiogram that identified a 70% lesion in the left internal carotid artery, which I did not think was critical and the patient had severe stenosis of the right vertebral artery and the left dominant vertebral artery had kink lesions, but was patent with adequate flow. Given that, I have recommended that we hold off on the carotid CT angiography. The patient is also going to be evaluated by a modified barium swallow to assess his ability to resume regular feeding. The patient appears to be doing well otherwise. TID: [id number] RECEIPT: [id number]
--- NOTE | 2024-09-24 07:30 | NUR ---
THIS AM DR. TAVIA BOO. ORDERED TO CANCEL CT OF HEAD AND ORDER MRI OF BRAIN WITH AND WITHOUT CONTRAST.
--- NOTE | 2024-09-24 08:33 | NUR ---
patient signed consent for mri. stated does not have a pacemaker or any body implant.
[2024-09-24] MEDS ORDERED: PoTASSium chloRIDE 10MEQ SR 10 MEQ/TAB TAB.SR.24H PO PRN (09:00)
--- NOTE | 2024-09-24 09:52 | PN ---
[facility] PROGRESS NOTE Date Patient Seen: September 24, 2024 Time of Visit: 09:52 Supervising Physician: Gerardo MANDEL MD Primary Care Physician: [] Outpatient Specialists: [ ] Inpatient Consults: [SHC, CTS] PROBLEM LIST: Carotid artery stenosisS/P Off-pump coronary artery bypass grafting x 4 vessel (left internal mammary to the LAD, reverse saphenous vein graft from the aorta to the first ) on 09/16/24 Vertebral artery stenosis JULIA on admission, resolved Chronic diastolic heart failure Hyperkalemia, resolved Anemia of chronic disease Left lobar pneumonia Dysphagia failed MBSS Rule out CVA - Pending MRI INTERVAL HISTORY: DOS 09/23/24: This is day#8 s/p CABG, Patient continues with the NG tube and tube feedings. This is scheduled for later on today. Per RN no major overnight events. MRI of the brain pending to rule out CVA. Patient denies any headache nausea or vomiting. Denies any cough chills or palpitations. REVIEW OF SYSTEMS: Const: [no fever, fatigue, or weight changes] Eyes:[ no recent vision problems] ENT: [No congestion, ear pain, or sore throat] + dysphagia C/V: [no chest pain, palpitations or edema] Resp: [No cough, congestion, wheezing , or Shortness of breath] GI: [No abdominal pain, nausea, vomiting, constipation, or diarrhea] : [No incontinence of or dyuria] M/S: [No joint or pain swelling] Skin: [No rash] Neuro: [no headache, focal numbness, or weakness, dizziness or seizures] Psych: [no depression or anxiety] Heme: [no abnormal bruising or bleeding] Lymph: [no swollen glands] PHYSICAL EXAM: GENERAL: Alert, weak, awake oriented x 3 HEENT: EOMI, Sclera non icteric, moist mucosa NECK: Supple, no JVD, trachea midline no signs and symptoms of infection LUNGS: clear breath sounds bilaterally. No wheezes HEART: Regular rate and rhythm. Normal S1 and S2, without murmurs ABD: Abdomen soft, nontender. Bowel sounds present EXT: No clubbing cyanosis or edema NEURO: Alert and oriented to person, follows commands Vital Signs (last 8hr) Date Time Temp Pulse Resp B/P (MAP) Pulse Ox O2 Delivery O2 Flow Rate FiO2 09/24/24 07:00 98.8 93 20 118/65 99 Room Air 09/24/24 06:56 95 18 09/24/24 06:55 95 18 N/A Room Air 21 09/24/24 03:06 99.0 94 16 116/58 98 Room Air LABS: Hematology Labs: Test 09/24/24 04:35 Range/Units White Blood Count 8.8 4.8-10.8 K/uL Red Blood Count 2.74 L 4.50-6.20 MIL/uL Hemoglobin 8.3 L 14.0-18.0 g/dL Hematocrit 25.1 L 42-54 % Mean Corpuscular Volume 91.6 79-99 fL Mean Corpuscular Hemoglobin 30.3 27.0-33.0 pg Mean Corpuscular Hemoglobin Concent 33.1 32.0-36.0 g/dL Red Cell Distribution Width 14.2 11.0-15.5 % Platelet Count 237 # 130-400 K/uL Mean Platelet Volume 9.8 7.5-10.5 fL Nucleated Red Blood Cells 0.0 0.0-0.19 % Chemistry Labs: Test 09/24/24 05:14 09/24/24 04:35 Range/Units Whole Blood Glucose 158 H 70-110 MG/DL Sodium Level 141 136-145 mmol/L Potassium Level 3.5 3.5-5.1 mmol/L Chloride Level 106 101-111 mmol/L Carbon Dioxide Level 29 21-32 mmol/L Blood Urea Nitrogen 30 H 7-18 mg/dL Creatinine 1.2 0.5-1.3 mg/dL Glomerular Filtration Rate Calc 62 >90 mL/min Random Glucose 157 H 70-105 mg/dL Total Calcium 8.2 L 8.5-10.1 mg/dL Phosphorus Level 3.4 2.5-4.9 mg/dL Magnesium Level 1.90 1.80-2.40 mg/dL DIAGNOSTICS / RADIOLOGY RESULTS: IMAGING REPORT Signed PATIENT: JOEY PAEZ JR MR#: [id number] : 1945 SEX: M AGE: 78 LOCATION: 2AH ORDER STATUS: ADM IN REPORT#: [id number] SERVICE [id number] REASON: eval infiltrates ORDERING PHYSICIAN: ALEXANDER QUIÑONES NP PROCEDURE: CXR1VW - CHEST 1VW Exam Type: CHEST 1VW Clinical Information: eval infiltrates Comparison: None Findings: Pulmonary pattern is as before. No worrisome interval changes have taken place. Impression: Stable exam. DICTATED BY: ADELINE MICHELLE MD DATE: 09/23/24918 ELECTRONICALLY SIGNED BY: ADELINE MICHELLE MD DATE: 09/23/24953 PLAN Pending repeat MBSS CT head and brai to rule out CVA CBC, BMP, Mag, and phos in am MRI to rule out CVA Dispo to IRU pending repeat MBSS NEURO: Minimize central acting medications as possible. Maintain fall precautions, adequate lighting during the day PULMONARY: Supplemental 02 as needed. Maintain aspiration precautions at all times CARDIOVASCULAR: Follow hemodynamics. Vital signs per facility protocol GI & NUTRITION: Continue with nutritional support. Continue stool softeners and laxatives as needed. KIDNEYS & ELECTROLYTES: Strict monitoring of intake, output and overall fluid balance. Avoid nephrotoxic medications to the extent possible. Medications to be dosed according to renal function. Monitor electrolytes and replace as needed ENDOCRINE: Maintain blood glucose between 100-180 at all times. Hypoglycemia protocol in place INFECTIOUS DISEASE: Trend temperature, WBC and procalcitonin level Follow cultures, deescalate antibiotics as soon as possible. Panculture if new onset fever ONCOLOGY/HEMATOLOGY/COAGULATION: Monitor for s/s of bleeding Monitor hemoglobin, coagulation studies as needed SKIN: Pressure ulcer prevention per facility protocol Specialty mattress ORTHO/REHAB: Continue PT/OT Prophylaxis: Continue GI and DVT prophylaxis Code Status: Full Resuscitation Disposition: TBD Other: Patient was seen and case was discussed with yasmin LEOS. Plan was discussed and agreed upon. ATTESTATION BY PHYSICIAN I reviewed the documentation, medical decision making, and treatment plan as noted by the mid-level provider above. I agree with the findings and plan of care. Gerardo Mandel MD, NELLY J ARNP September 24, 2024 09:52
--- NOTE | 2024-09-24 11:07 | EKG ---
[facility] Test Date: 2024-09-24 Test Time: 06:43:04 Pat Name: JOEY PAEZ Department: [facility] Room: 202 1 Gender: M Department Head: [id number] : 1945 Requested By: Betina SQUIRES Order Number: [id number] Reading MD: Reinaldo Bess Measurements Intervals [place] Rate: 93 P: 40 [place]: 138 QRS: -29 QRSD: 76 T: 101 QT: 351 QTc: 437 Interpretive Statements Sinus rhythm Consider RVH Compared to ECG 09/16/2024 23:11:23 ST (T wave) deviation no longer present Electronically Signed On 09-24-2024 21:27:16 CDT by Reinaldo Bess Please click the below link to view image of tracing.
--- NOTE | 2024-09-24 15:30 | NUR ---
MBSS RE-EVALUATION COMPLETED. Deep non-transient penetrations after the swallow with all textures given (pureed, pudding and thin liquids) with no cough response. Recommend NPO, janitor head alternate means of nutrition/hydration. DIAGNOSTIC FINDINGS: Pt presented with moderate to severe pharyngeal dysphagia characterized by delayed pharyngeal response trigger; decreased hyo-laryngeal elevation/excursion; decreased tongue base retraction; decreased sensation; and decreased pressure generation; evidenced by tongue pumping; impaired epiglottic inversion; premature spillage to valleculae with spillover to pyriform sinuses; multiple swallows; severe and pooled residue on base of tongue, valleculae, pyriform sinuses and posterior pharyngeal wall unable to clear with extra dry swallows; resulting in deep non-transient penetrations after the swallow with all textures presented (thin liquids, pudding thick and pureed) with no cough response. Exam terminated at this time due to severity of dysphagia. CAREER EDUCATION TEACHER reviewed results and recommendations with patient and nurse Damon. CAREER EDUCATION TEACHER educated patient/family on risks and consequences of aspiration. Continue with speech therapy plan of care to address pharyngeal dysphagia during length of stay. All questions answered. Addendum: 09/24/[address] [facility] Amended: Links added.
--- NOTE | 2024-09-24 16:37 | HMCIMG ---
MODIFIED BARIUM SWALLOW W CINE INDICATION: DYSPHAGIA, OROPHANGEAL PHASE FINDINGS: Fluoroscopic assistance was provided to the speech pathologist while performing examination. For findings and dietary recommendations, refer to speech pathologist's report. IMPRESSION: Modified barium swallow as described.
[2024-09-25] VITALS (14 sets, daily range): BP systolic 101–132; BP diastolic 54–67; PULSE 56–97; RESP 18–20; TEMP 97.9–99.2; O2SAT 95–100
[2024-09-25 07:53] LABS: BASOPHILS # (AUTO) 0.03 K/uL (0.00-0.20); BASOPHILS % (AUTO) 0.4 % (0.0-5.0); EOSINOPHILS # (AUTO) 0.15 K/uL (0.00-0.70); EOSINOPHILS % (AUTO) 2.1 % (0.0-8.0); HEMATOCRIT 25.4 % (42-54); IMMATURE GRANULOCYTE ABSOLUTE 0.03 K/uL (0-1); LYMPHOCYTES % (AUTO) 13.6 % (21.0-51.0); MEAN CORPUSCULAR HEMOGLOBIN 29.8 pg (27.0-33.0); MEAN CORPUSCULAR HGB CONC 32.3 g/dL (32.0-36.0); MEAN CORPUSCULAR VOLUME 92.4 fL (79-99); MONOCYTES # (AUTO) 0.5 K/uL (0.1-1.0); MONOCYTES % (AUTO) 7.2 % (3.0-13.0); NEUTROPHILS # (AUTO) 5.4 K/uL (1.8-7.7); NEUTROPHILS % (AUTO) 76.3 % (40.0-77.0); PLATELET COUNT (AUTO) 266 K/uL (130-400); RED BLOOD CELL COUNT(AUTO) 2.75 MIL/uL (4.50-6.20); RED CELL DISTRIBUTION WIDTH 14.4 % (11.0-15.5); WHITE BLOOD COUNT (AUTO) 7.1 K/uL (4.8-10.8)
--- NOTE | 2024-09-25 08:06 | PN ---
[facility] PROGRESS NOTE Date Patient Seen: September 25, 2024 Time of Visit: 08:02 Problem List: * Severe three-vessel coronary artery disease. * Status post remote angioplasty and stenting of the LAD. * A 70% left internal carotid artery stenosis with 80% stenosis of the right vertebral artery and tortuous left vertebral artery with kink lesions and a bovine arch orientation by carotid angiography, 09/15/2024. * Severe three-vessel coronary artery disease by cardiac catheterization and coronary arteriography, 09/15/2024. * Recurrent angina with features of destabilization. * Status post coronary artery bypass graft surgery with a TANG to the LAD, saphenous vein graft to the first diagonal, saphenous vein graft to the PDA and saphenous vein graft to the ramus intermedius by Dr. Selby, 09/16/2024. * Postoperative anemia, stable. * Postop dysphagia with questionable aspiration, being evaluated. * Hyperlipoproteinemia. Interval History: Pt POD #8, Continues with aspiration precautions. He has NGT in place, pending a repeat barium swallow in a couple of days after regaining some strength. MRI is pending to be completed. Pt had CTA of neck cancelled as he had evaluation with Dr Gudino. Pt denies chest pain, sob, continues with NGT in place. Physical Examination: GENERAL: [Elderly, frail, No acute distress.] HEAD: [Normal with no signs of head trauma.] EYES: [PERRLA, EOMI, conjunctiva and sclera normal.] ENT: [Hearing grossly intact, normal oropharynx.] NECK: [Supple without JVD. There is no tenderness, lymphadenopathy, or masses. No thyromegaly. Normal carotid upstrokes without bruits.] LUNGS: [Diminished breath sounds bilaterally. HEART: [Normal rate and rhythm. Normal S1 and S2 without murmurs, gallop or rub.] VASC: [Peripheral pulses +2 bilaterally.] ABD: [Bowel sounds normal, soft, nontender, no masses, no organomegaly. No audible bruits.] : [Not examined] LYMPH: [No lymphadenopathy noted.] EXT: [No clubbing, cyanosis or edema.] SKIN: [Sternotomy incision appears clean without purulent discharge or bleeding.] NEURO: [Awake, alert, and oriented x3. No focal sensory or strength deficits noted.Dysphagia present, slight weakness to left leg Laboratory: [ ] Hematology Labs: Test 09/25/24 07:42 Range/Units White Blood Count 7.1 4.8-10.8 K/uL Red Blood Count 2.75 L 4.50-6.20 MIL/uL Hemoglobin 8.2 L 14.0-18.0 g/dL Hematocrit 25.4 L 42-54 % Mean Corpuscular Volume 92.4 79-99 fL Mean Corpuscular Hemoglobin 29.8 27.0-33.0 pg Mean Corpuscular Hemoglobin Concent 32.3 32.0-36.0 g/dL Red Cell Distribution Width 14.4 11.0-15.5 % Platelet Count 266 130-400 K/uL Mean Platelet Volume 9.7 7.5-10.5 fL Immature Granulocyte % (Auto) 0.4 0-1 % Neutrophils (%) (Auto) 76.3 40.0-77.0 % Lymphocytes (%) (Auto) 13.6 L 21.0-51.0 % Monocytes (%) (Auto) 7.2 3.0-13.0 % Eosinophils (%) (Auto) 2.1 0.0-8.0 % Basophils (%) (Auto) 0.4 0.0-5.0 % Neutrophils # (Auto) 5.4 1.8-7.7 K/uL Lymphocytes # (Auto) 1.0 1.0-4.8 K/uL Monocytes # (Auto) 0.5 0.1-1.0 K/uL Eosinophils # (Auto) 0.15 0.00-0.70 K/uL Basophils # (Auto) 0.03 0.00-0.20 K/uL Absolute Immature Granulocyte (auto 0.03 0-1 K/uL Nucleated Red Blood Cells 0.0 0.0-0.19 % Chemistry Labs: Test 09/25/24 05:20 09/24/24 04:35 Range/Units Whole Blood Glucose 145 H 70-110 MG/DL Bedside Glucose Comment Notified Nurse Sodium Level 141 136-145 mmol/L Potassium Level 3.5 3.5-5.1 mmol/L Chloride Level 106 101-111 mmol/L Carbon Dioxide Level 29 21-32 mmol/L Blood Urea Nitrogen 30 H 7-18 mg/dL Creatinine 1.2 0.5-1.3 mg/dL Glomerular Filtration Rate Calc 62 >90 mL/min Random Glucose 157 H 70-105 mg/dL Total Calcium 8.2 L 8.5-10.1 mg/dL Phosphorus Level 3.4 2.5-4.9 mg/dL Magnesium Level 1.90 1.80-2.40 mg/dL Diagnostics / Radiology: No current imaging to review, pending MRI brain Impression and Plan: New onset dysphagia, post operatively. severe carotid stenosis to left side, advanced age. We we will r/o subacute CVA with MRI, perform CTA head/neck eval for stenosis severity with measurement Continue asa/plavix Monitor for arrhythmia Continue with supportive care NGT for feeds/meds Aspiration precautions. Continue statin hold lasix bmp/bnp in am CXR today ALEXANDER QUIÑONES NP September 25, 2024 08:06
[2024-09-25 08:07] LABS: INR 1.14 (0.85-1.15); PROTHROMBIN TIME 11.9 SEC (9.6-11.6)
[2024-09-25 08:09] LABS: PARTIAL THROMBOPLASTIN TIME 27.9 SEC (26.3-35.5)
[2024-09-25 08:46] LABS: ALBUMIN 2.2 g/dL (3.5-5.0); BILIRUBIN,TOTAL 0.6 mg/dL (0.2-1.0); CREATININE 1.1 mg/dL (0.5-1.3); POTASSIUM 4.1 mmol/L (3.5-5.1); TOTAL PROTEIN, SERUM 6.1 g/dL (6.0-8.3)
--- NOTE | 2024-09-25 09:10 | NUR ---
[facility] Care Coordination Call Case reviewed and discuss with the [facility] team. Updated that IRU remains dcp. Patient failed Speech Re-evaluation and will require terminal gauger nutrition. Dr. Robison consulted for G-Tube Placement.
--- NOTE | 2024-09-25 14:21 | HMCIMG ---
Exam Type: MR BRAIN WWO CON Clinical Information: RULE OUT STROKE Comparison: None Technique: T1 weighed sagittal, T1-weighted axial, T2-weighted axial, diffusion, apparent diffusion, exponential diffusion weighted axial, T2-weighted FLAIR sagittal, coronal and axial images of the brain. Findings: There is a atrophy. The examination is otherwise unremarkable. Olmedo-white matter junction is preserved. No intra or extra axial lesions or fluid collections are seen. There are no infarcts. There are no hemorrhages. Signal intensity is normal throughout the periventricular white matter locations. The orbital contents and structures of the posterior fossa are intact. The sella and its contents and the structures of the skull base are intact as well. Impression: Atrophy.
--- NOTE | 2024-09-25 14:44 | NUR ---
Nutrition f/u Reviewed labs, notes, and medications. Pt failed MBSS, pending G-tube placement, BG 122(H), Ca 8.1(L), elevated AST 50(H), BMI of 21.3 per chart review. Wt via standing scale, on Jevity 1.5, NGT in place, no edema, chest incision, IV fluids, last BM 09/23/24 per nursing. Pt denied N/V, no abd discomfort, BM 2 days ago during visit. TF turned off during visit. Jevity 1.5 in room during visit. TF rec appropriate to meet Pt's needs. Start TF rate @ 25 ml/hr for the first 4 hours, increase 5 ml Q2H until you reach goal rate. If residual >500 ml stop TF for 2 hours and then restart if residual continues to be >500 ml stop TF and notify MD Recommendations -Provide Jevity 1.5 @ 55 ml/hr x 22 hrs + 200 Q4H Provides: 1815 kcals, 77 gm pro, 2119 ml per day -If bolus provide: 5 cans of Jevity 1.5 (times: 0900,1400, 1900, 0000,0500) 30 ml before and after each feed -Monitor BM -If no BM >3 days consider stool softener -Monitor electrolytes -Replenish electrolytes per protocol -Monitor wts -Reweigh as able -Provide vit. D supplement per vit. D 24.1 -Provide MVI QD -Recommend Pt to follow up with PCP -Monitor TF tolerance + need for TF adjustment -Monitor goals of care RD to follow + available for consult per protocol Addendum: 09/25/24 at [address] Amended: Links added.
[2024-09-25] MEDS ORDERED: GADOTERATE MEGLUMINE 10 MMOL/20 ML VIAL IV ONE (17:13)
--- NOTE | 2024-09-25 19:59 | PN ---
[facility] PROGRESS NOTE Date Patient Seen: September 25, 2024 Time of Visit: 11:00 Supervising Physician: José Luis Oneill MD Primary Care Physician: [] Outpatient Specialists: [ ] Inpatient Consults: [SHC, CTS] PROBLEM LIST: Carotid artery stenosisS/P Off-pump coronary artery bypass grafting x 4 vessel (left internal mammary to the LAD, reverse saphenous vein graft from the aorta to the first ) on 09/16/24 Post extubation Dysphagia with + signs of silent aspiration on MBSS 09/24/24 - pending PEG CVA ruled out per MRI of Brain 09/25/24 Vertebral artery stenosis JULIA on admission, resolved Chronic diastolic heart failure Hyperkalemia, resolved Anemia of chronic disease Left lobar pneumonia Dysphagia failed MBSS Rule out CVA - Pending MRI INTERVAL HISTORY: Pt has failed 2nd MBSS and 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 Dr. Robison has been consulted for G Tube placement. Per Surgery recs he will require holding Plavix x 5 days prior to placing G-Tube. Today Will be day #1 to hold Plavix and will plan for G-Ttube placement on Sunday09/29/24. As far as DC planning. Pt is eager to start rehab. IRU does not accept the patient with NG tube and therefore Case management has been reconsulted for possible LTAC placement with the agreement from Patient. As per Dr Robison he can follow pt at [facility] and can place Gtube at [facility] if pt is accepted before Sunday. Pt has been made aware and he verbalizes understanding. MRI of the brain shows atrophy; CVA has been ruled out. REVIEW OF SYSTEMS: Const: [no fever, fatigue, or weight changes] Eyes:[ no recent vision problems] ENT: [No congestion, ear pain, or sore throat] + dysphagia C/V: [no chest pain, palpitations or edema] Resp: [No cough, congestion, wheezing , or Shortness of breath] GI: [No abdominal pain, nausea, vomiting, constipation, or diarrhea] : [No incontinence of or dyuria] M/S: [No joint or pain swelling] Skin: [No rash] Neuro: [no headache, focal numbness, or weakness, dizziness or seizures] Psych: [no depression or anxiety] Heme: [no abnormal bruising or bleeding] Lymph: [no swollen glands] PHYSICAL EXAM: GENERAL: Alert, weak, awake oriented x 3 HEENT: EOMI, Sclera non icteric, moist mucosa NECK: Supple, no JVD, trachea midline no signs and symptoms of infection LUNGS: clear breath sounds bilaterally. No wheezes HEART: Regular rate and rhythm. Normal S1 and S2, without murmurs ABD: Abdomen soft, nontender. Bowel sounds present EXT: No clubbing cyanosis or edema NEURO: Alert and oriented to person, follows commands Vital Signs (last 8hr) Date Time Temp Pulse Resp B/P (MAP) Pulse Ox O2 Delivery O2 Flow Rate FiO2 09/25/24 19:33 86 18 09/25/24 19:32 85 18 N/A Room Air 21 09/25/24 16:00 97.9 85 20 101/62 99 Room Air LABS: Hematology Labs: Test 09/25/24 07:42 Range/Units White Blood Count 7.1 4.8-10.8 K/uL Red Blood Count 2.75 L 4.50-6.20 MIL/uL Hemoglobin 8.2 L 14.0-18.0 g/dL Hematocrit 25.4 L 42-54 % Mean Corpuscular Volume 92.4 79-99 fL Mean Corpuscular Hemoglobin 29.8 27.0-33.0 pg Mean Corpuscular Hemoglobin Concent 32.3 32.0-36.0 g/dL Red Cell Distribution Width 14.4 11.0-15.5 % Platelet Count 266 130-400 K/uL Mean Platelet Volume 9.7 7.5-10.5 fL Immature Granulocyte % (Auto) 0.4 0-1 % Neutrophils (%) (Auto) 76.3 40.0-77.0 % Lymphocytes (%) (Auto) 13.6 L 21.0-51.0 % Monocytes (%) (Auto) 7.2 3.0-13.0 % Eosinophils (%) (Auto) 2.1 0.0-8.0 % Basophils (%) (Auto) 0.4 0.0-5.0 % Neutrophils # (Auto) 5.4 1.8-7.7 K/uL Lymphocytes # (Auto) 1.0 1.0-4.8 K/uL Monocytes # (Auto) 0.5 0.1-1.0 K/uL Eosinophils # (Auto) 0.15 0.00-0.70 K/uL Basophils # (Auto) 0.03 0.00-0.20 K/uL Absolute Immature Granulocyte (auto 0.03 0-1 K/uL Nucleated Red Blood Cells 0.0 0.0-0.19 % Chemistry Labs: Test 09/25/24 16:19 09/25/24 07:42 09/24/24 04:35 Range/Units Whole Blood Glucose 114 H 70-110 MG/DL Bedside Glucose Comment Notified Nurse Sodium Level 138 136-145 mmol/L Potassium Level 4.1 3.5-5.1 mmol/L Chloride Level 106 101-111 mmol/L Carbon Dioxide Level 28 21-32 mmol/L Blood Urea Nitrogen 29 H 7-18 mg/dL Creatinine 1.1 0.5-1.3 mg/dL Glomerular Filtration Rate Calc 68 >90 mL/min Random Glucose 174 H 70-105 mg/dL Total Calcium 8.1 L 8.5-10.1 mg/dL Total Bilirubin 0.6 0.2-1.0 mg/dL Aspartate Amino Transf (AST/SGOT) 50 H 10-37 U/L Alanine Aminotransferase (ALT/SGPT) 47 12-78 U/L Alkaline Phosphatase 142 H 50-136 U/L Total Protein 6.1 6.0-8.3 g/dL Albumin 2.2 L 3.5-5.0 g/dL Phosphorus Level 3.4 2.5-4.9 mg/dL Magnesium Level 1.90 1.80-2.40 mg/dL Coagulation Labs: Test 09/25/24 07:42 Range/Units Prothrombin Time 11.9 H 9.6-11.6 SEC Prothromb Time International Ratio 1.14 0.85-1.15 Activated Partial Thromboplast Time 27.9 26.3-35.5 SEC DIAGNOSTICS / RADIOLOGY RESULTS: [ ] PLAN Consult DR Robison for gtube placement who recommends holding Plavix x5 Days. Today 09/25/24 day Number 1 and plan for Gtube placement for sunday09/29/24. MRI of the brain ruled out CVA Case management for LTAC placement; Per Dr Robison he can follow pt at LTAC and if needed may place gtube [facility]. CM for LTAC placement with agreement by Patient. NEURO: Minimize central acting medications as possible. Maintain fall precautions, adequate lighting during the day PULMONARY: Supplemental 02 as needed. Maintain aspiration precautions at all times CARDIOVASCULAR: Follow hemodynamics. Vital signs per facility protocol GI & NUTRITION: Continue with nutritional support. Continue stool softeners and laxatives as needed. KIDNEYS & ELECTROLYTES: Strict monitoring of intake, output and overall fluid balance. Avoid nephrotoxic medications to the extent possible. Medications to be dosed according to renal function. Monitor electrolytes and replace as needed ENDOCRINE: Maintain blood glucose between 100-180 at all times. Hypoglycemia protocol in place INFECTIOUS DISEASE: Trend temperature, WBC and procalcitonin level Follow cultures, deescalate antibiotics as soon as possible. Panculture if new onset fever ONCOLOGY/HEMATOLOGY/COAGULATION: Monitor for s/s of bleeding Monitor hemoglobin, coagulation studies as needed SKIN: Pressure ulcer prevention per facility protocol Specialty mattress ORTHO/REHAB: Continue PT/OT Prophylaxis: Continue GI and DVT prophylaxis Code Status: Full Resuscitation Disposition: TBD Other: Patient was seen and case was discussed with yasmin LEOS. Plan was discussed and agreed upon. FRITZ GAVIRIA [facility] September 25, 2024 19:59
[2024-09-25] MEDS: doCUSate NA 100MG/10ML UDCUP PO SCH (20:56)
[2024-09-26] VITALS (9 sets, daily range): BP systolic 98–119; BP diastolic 54–62; PULSE 77–93; RESP 16–18; TEMP 97.8–99; O2SAT 95–97
--- NOTE | 2024-09-26 06:29 | PN ---
[facility] CARDIOLOGY PROGRESS NOTE Date Patient Seen: September 26, 2024 Time of Visit: 06:20 Problem List: * Severe three-vessel coronary artery disease. * Status post remote angioplasty and stenting of the LAD. * A 70% left internal carotid artery stenosis with 80% stenosis of the right vertebral artery and tortuous left vertebral artery with kink lesions and a bovine arch orientation by carotid angiography, 09/15/2024. * Severe three-vessel coronary artery disease by cardiac catheterization and coronary arteriography, 09/15/2024. * Recurrent angina with features of destabilization. * Status post coronary artery bypass graft surgery with a TANG to the LAD, saphenous vein graft to the first diagonal, saphenous vein graft to the PDA and saphenous vein graft to the ramus intermedius by Dr. Selby, 09/16/2024. * Postoperative anemia, stable. * Postop dysphagia with questionable aspiration, being evaluated. * Hyperlipoproteinemia. Interval History: Pt POD #9, Continues with aspiration precautions. He has NGT in place, pending a repeat barium swallow was still positive for dyphagia, pending peg placement. MRI completed. Radiologist interpreted atrophy only no hyperintense focus per their review. Pt is has surgeon consulted for peg and will likely go to rehab afterward. He is pulling >1 liter on IS. Vitals remains stable. Pt denies chest pain, sob, continues with NGT in place. No evidence of bleeding, plavix held per surgeon in anticipation of peg, placed on lovenox in the interm, plan to resume DAPT post op for severe carotid disease Physical Examination: GENERAL: [Elderly, frail, No acute distress.] HEAD: [Normal with no signs of head trauma.] EYES: [PERRLA, EOMI, conjunctiva and sclera normal.] ENT: [Hearing grossly intact, normal oropharynx.] NECK: [Supple without JVD. There is no tenderness, lymphadenopathy, or masses. No thyromegaly. Normal carotid upstrokes without bruits.] LUNGS: [Diminished breath sounds bilaterally. HEART: [Normal rate and rhythm. Normal S1 and S2 without murmurs, gallop or rub.] VASC: [Peripheral pulses +2 bilaterally.] ABD: [Bowel sounds normal, soft, nontender, no masses, no organomegaly. No audible bruits.] : [Not examined] LYMPH: [No lymphadenopathy noted.] EXT: [No clubbing, cyanosis or edema.] SKIN: [Sternotomy incision appears clean without purulent discharge or bleeding.] NEURO: [Awake, alert, and oriented x3. No focal sensory or strength deficits n oted.Dysphagia present, slight weakness to left leg Laboratory: [ ] Hematology Labs: Test 09/25/24 07:42 Range/Units White Blood Count 7.1 4.8-10.8 K/uL Red Blood Count 2.75 L 4.50-6.20 MIL/uL Hemoglobin 8.2 L 14.0-18.0 g/dL Hematocrit 25.4 L 42-54 % Mean Corpuscular Volume 92.4 79-99 fL Mean Corpuscular Hemoglobin 29.8 27.0-33.0 pg Mean Corpuscular Hemoglobin Concent 32.3 32.0-36.0 g/dL Red Cell Distribution Width 14.4 11.0-15.5 % Platelet Count 266 130-400 K/uL Mean Platelet Volume 9.7 7.5-10.5 fL Immature Granulocyte % (Auto) 0.4 0-1 % Neutrophils (%) (Auto) 76.3 40.0-77.0 % Lymphocytes (%) (Auto) 13.6 L 21.0-51.0 % Monocytes (%) (Auto) 7.2 3.0-13.0 % Eosinophils (%) (Auto) 2.1 0.0-8.0 % Basophils (%) (Auto) 0.4 0.0-5.0 % Neutrophils # (Auto) 5.4 1.8-7.7 K/uL Lymphocytes # (Auto) 1.0 1.0-4.8 K/uL Monocytes # (Auto) 0.5 0.1-1.0 K/uL Eosinophils # (Auto) 0.15 0.00-0.70 K/uL Basophils # (Auto) 0.03 0.00-0.20 K/uL Absolute Immature Granulocyte (auto 0.03 0-1 K/uL Nucleated Red Blood Cells 0.0 0.0-0.19 % Chemistry Labs: Test 09/26/24 05:23 09/25/24 16:19 09/25/24 07:42 Range/Units Whole Blood Glucose 125 H 70-110 MG/DL Bedside Glucose Comment Notified Nurse Sodium Level 138 136-145 mmol/L Potassium Level 4.1 3.5-5.1 mmol/L Chloride Level 106 101-111 mmol/L Carbon Dioxide Level 28 21-32 mmol/L Blood Urea Nitrogen 29 H 7-18 mg/dL Creatinine 1.1 0.5-1.3 mg/dL Glomerular Filtration Rate Calc 68 >90 mL/min Random Glucose 174 H 70-105 mg/dL Total Calcium 8.1 L 8.5-10.1 mg/dL Total Bilirubin 0.6 0.2-1.0 mg/dL Aspartate Amino Transf (AST/SGOT) 50 H 10-37 U/L Alanine Aminotransferase (ALT/SGPT) 47 12-78 U/L Alkaline Phosphatase 142 H 50-136 U/L Total Protein 6.1 6.0-8.3 g/dL Albumin 2.2 L 3.5-5.0 g/dL Coagulation Labs: Test 09/25/24 07:42 Range/Units Prothrombin Time 11.9 H 9.6-11.6 SEC Prothromb Time International Ratio 1.14 0.85-1.15 Activated Partial Thromboplast Time 27.9 26.3-35.5 SEC Diagnostics / Radiology: [Copy/Paste Echos/Imaging Report here] Impression and Plan: New onset dysphagia, post operatively. severe carotid stenosis to left side, advanced age. PEG pending per surgeon, Continue asa, plavix held in anticipation of peg Monitor for arrhythmia Continue with supportive care NGT for feeds/meds Aspiration precautions. Continue statin Enoxaparin to resume pending resumption of plavix ALEXANDER QUIÑONES NP September 26, 2024 06:29
[2024-09-26] MEDS: ENOXAPARIN SODIUM 30 MG/0.3 ML SQ ONE (10:00)
--- NOTE | 2024-09-26 11:38 | DS ---
[facility] DISCHARGE SUMMARY Date Patient Seen: September 26, 2024 Time of Visit: 11:35 Supervising Physician: José Luis Oneill MD Primary Care Physician: [] Outpatient Specialists: [ ] Inpatient Consults: [SHC, CTS] PROBLEM LIST: Multivessel CAD. S/P Off-pump coronary artery bypass grafting x 4 vessel (left internal mammary to the LAD, reverse saphenous vein graft from the aorta to the first ) on 09/16/24 Post extubation Dysphagia with + signs of silent aspiration on MBSS 09/24/24 - pending PEG CVA ruled out per MRI of Brain 09/25/24 Vertebral artery stenosis Left internal carotid artery stenosis greater than 70%, POA JULIA on admission, resolved Chronic diastolic heart failure with EF of 60 65% on 2D echo 09/15/24 Hyperkalemia, resolved Anemia of chronic disease Left lobar pneumonia, suspected aspiration Rule out CVA - Pending MRI Previous Hx of CAD with stents X2 in 2014, and 2016 HOSPITAL COURSE: HPI This is a 78-year-old male with a past medical history of CAD and prior stenting 2015 and 2016 who presented for elective five patient coronary angiography on 09/15/24. Left heart catheterization revealed triple-vessel disease and Cardiothoracic surgeon was consulted. On 09/16/24 he underwent off pump coronary artery bypass grafting to 4 vessels. Postoperatively, the patient developed anemia requiring blood product support. He also experienced dysphagia post extubation with confirmed aspiration on two separate modified barium swallow evaluation. He was placed on NPO status in the nasogastric tube was inserted for nutrition. Hyperlipoproteinemia was also noted and statin therapy was continued. Has been medically azithromycin accepted for transfer to [facility] for continued IV hydration or nutrition via NG tube, speech therapy, and coordination of PEG tube placement. Per General surgery Dr. Robison, Plavix should be held for five days prior to PEG placement. He is sensitive. To undergo PEG placement on Sunday at the [facility] facility. Cardiology has cleared the patient for outpatient follow up once one week post discharge. Patient to follow up with Cardiothoracic surgery in one week. Patient to continue his aspirin, Plavix but on hold for five days pending PEG placement, and statin therapy. CHRONIC PROBLEMS: continue previous management per PCP unless otherwise indicated CODIFIER FINDINGS/RECOMMENDATIONS: Patient to continue with aspirin, Plavix and statin therapy. Of note Plavix on hold for five days for PEG tube placement. Patient to follow up with Cardiology in one week Patient to follow up with cardiovascular surgeon in one week. PROCEDURES: as mentioned above DISCHARGE MEDICATIONS: CURRENT MEDICATIONS Acetaminophen (TYLenol 325MG TAB) 650 mg Q4H PRN PO Temp >38.3C(AFTER EXTUBATION); Start 09/16/24 at 21:30; Stop 10/16/24 at 21:29 Acetaminophen (TYLenol 325MG TAB) 650 mg Q6H PRN PO MILD PAIN (1-3) Last administered on 09/22/24at 22:32; Start 09/16/24 at 21:30; Stop 10/16/24 at 21:29 Acetaminophen (TYLenol 650MG SUPPOSITORY) 650 mg Q4H PRN RC Temp >38.3C WHILE INTUBATED; Start 09/16/24 at 21:30; Stop 10/16/24 at 21:29 Aspirin (Aspirin 81mg Ec Tab) 81 mg DAILY PO Last administered on 09/26/24at 10:00; Start 09/17/24 at 09:00; Stop 10/17/24 at 08:59 Atorvastatin Calcium (LIPItor 40MG) 80 mg HS PO Last administered on 09/25/24at 20:56; Start 09/15/24 at 21:00; Stop 10/15/24 at 20:59 Calcium Gluconate 1 gm/Sodium Chloride 60 ml @ 200 mls/hr AD PRN IV HYPOCALCEMIA; Start 09/16/24 at 21:30; Stop 10/16/24 at 21:29 Dextrose (D50w) 50 ml AD PRN IV HYPOGLYCEMIA PROTOCOL; Start 09/16/24 at 21:30; Stop 10/16/24 at 21:29 Docusate Sodium (COLace LIQUID 100MG/10ML) 100 mg BID PO Last administered on 09/26/24at 09:59; Start 09/25/24 at 21:00; Stop 10/25/24 at 20:59 Famotidine (Pepcid 20mg Vial) 20 mg Q24H IV Last administered on 09/26/24at 10:25; Start 09/17/24 at 09:00; Stop 10/17/24 at 08:59 Glucagon (Glucagon 1mg Kit) 1 mg AD PRN IM HYPOGLYCEMIA PROTOCOL; Start 09/16/24 at 21:30; Stop 10/16/24 at 21:29 Insulin Human Regular (humuLIN R 100 UNIT/ML 3ML) INSULIN SLIDING SCAL... Q6H6 SQ ; Start 09/21/24 at 00:00; Stop 10/21/24 at 00:00 Ipratropium Zeigler (AtrovENT UD) 0.5 MG [id number] IH Last administered on 09/26/24at 07:13; Start 09/17/24 at 18:00; Stop 10/17/24 at 17:59 Lactulose (Constulose 20gm/ 30ml Udcup) 20 gm BID PRN PO CONSTIPATION Last administered on 09/25/24at 18:19; Start 09/16/24 at 21:30; Stop 10/16/24 at 21:29 Magnesium Hydroxide (Milk Of Magnesium 30ml) 30 ml DAILY PRN PO CONSTIPATION; Start 09/16/24 at 21:30; Stop 10/16/24 at 21:29 Metoprolol Tartrate (loprESSOR) 25 mg BID PO Last administered on 09/26/24at 10:00; Start 09/20/24 at 09:30; Stop 10/20/24 at 09:29 Ondansetron HCl (zoFRAN 4MG INJ) 4 mg Q6H PRN IV NAUSEA/VOMITING Last administered on 09/17/24at 12:47; Start 09/16/24 at 21:30; Stop 10/16/24 at 21:29 Piperacillin Sod/ Tazobactam Sod (Zosyn 3.375gm+NS 50ml) 3.375 gm Q8H IV Last administered on 09/26/24at 10:00; Start 09/17/24 at 18:00; Stop 09/27/24 at 17:59 Potassium Chloride (K-Dur 10meq Sr Tab) 10 meq AD PRN PO POTASSIUM PROTOCOL; Start 09/24/24 at 09:00; Stop 10/20/24 at 05:29 Potassium Chloride (KCl 10% Elixir 20meq/15ml) 10 meq AD PRN PO POTASSIUM PROTOCOL Last administered on 09/22/24at 09:32; Start 09/20/24 at 05:30; Stop 10/20/24 at 05:29 Sodium Chloride (NS Flush 10ml) 10 ml Q8H PRN IVP IV LINE FLUSH; Start 09/16/24 at 21:30; Stop 10/16/24 at 21:29 Pt hemodynamically stable and afebrile at time of discharge. PCP notified of patient�s admission, hospital course and discharge. PHYSICAL EXAM: GENERAL: Alert, weak, awake oriented x 3 HEENT: EOMI, Sclera non icteric, moist mucosa NG tube in place. NECK: Supple, no JVD, trachea midline no signs and symptoms of infection LUNGS: clear breath sounds bilaterally. No wheezes HEART: Regular rate and rhythm. Normal S1 and S2, without murmurs ABD: Abdomen soft, nontender. Bowel sounds present EXT: No clubbing cyanosis or edema NEURO: Alert and oriented to person, follows commands Disposition: Discharged in stable condition to [facility] with a NG tube in place. Follow up appointments: Follow up with Cardiology in one week Cardiothoracic surgery as outpatient in 1-2 weeks General surgery we will follow at [facility] for PEG placement. RECOMMENDATIONS: See Discharge Instructions This case was seen and discussed with my supervising physician. More than 30 minutes spent on discharge process, including evaluation of the patient, discussion with nursing staff, medication reconciliation and follow-up appointments FRITZ GAVIRIA September 26, 2024 11:38
--- NOTE | 2024-09-26 11:50 | HMCIMG ---
Exam Type: CHEST 1VW Clinical Information: eval for infiltrates/tube placement Comparison: None Findings: Nasogastric tube tip is noted in patient's stomach and no other interval changes are seen. IMPRESSION: Nasogastric tube tip in stomach.
--- NOTE | 2024-09-26 14:54 | NUR ---
REPORT WAS CALLED INTO [facility] AND REPORT WAS GIVEN TO JANIE MCKINLEY. [facility] WAS NOTIFIED WELL OF NEED OF TRANSFER. THEY ARE AWARE.
--- NOTE | 2024-09-26 16:25 | NUR ---
PATIENT WAS TAKEN BY [facility]. ALL BELONGINGS WERE TAKEN WITH THE PATIENT.
== END 2024-09-26 16:13 | DRG 233 ==
LOC: DAH 08:13 → DAHIP 08:14 → 2AH 17:20 → 2CV 09-16 18:02 → 2BH 09-18 09:05 → 2AH 09-18 14:27
PROVIDERS: ADMIT Internal Medicine; ATTEND Internal Medicine
PROC: 4A023N7 Measurement of Cardiac Sampling and Pressure, Left Heart, Percutaneous Approach (ICD-10-PCS; 2024-09-15)
PROC: B3121ZZ Fluoroscopy of Left Subclavian Artery using Low Osmolar Contrast (ICD-10-PCS; 2024-09-15)
PROC: B2111ZZ Fluoroscopy of Multiple Coronary Arteries using Low Osmolar Contrast (ICD-10-PCS; 2024-09-15)
PROC: B3111ZZ Fluoroscopy of Right Brachiocephalic-Subclavian Artery using Low Osmolar Contrast (ICD-10-PCS; 2024-09-15)
PROC: B31G1ZZ Fluoroscopy of Bilateral Vertebral Arteries using Low Osmolar Contrast (ICD-10-PCS; 2024-09-15)
PROC: B3151ZZ Fluoroscopy of Bilateral Common Carotid Arteries using Low Osmolar Contrast (ICD-10-PCS; 2024-09-15)
PROC: 06BQ4ZZ Excision of Left Saphenous Vein, Percutaneous Endoscopic Approach (ICD-10-PCS; 2024-09-16)
PROC: 0PH000Z Insertion of Rigid Plate Internal Fixation Device into Sternum, Open Approach (ICD-10-PCS; 2024-09-16)
PROC: 5A1221Z Performance of Cardiac Output, Continuous (ICD-10-PCS; 2024-09-16)
PROC: 02100Z9 Bypass Coronary Artery, One Artery from Left Internal Mammary, Open Approach (ICD-10-PCS; principal; 2024-09-16 19:24)
PROC: 021209W Bypass Coronary Artery, Three Arteries from Aorta with Autologous Venous Tissue, Open Approach (ICD-10-PCS; 2024-09-16 19:24)
DX: I25.119 Atherosclerotic heart disease of native coronary artery with unspecified angina pectoris (principal); J18.1 Lobar pneumonia, unspecified organism; N17.0 Acute kidney failure with tubular necrosis; J95.1 Acute pulmonary insufficiency following thoracic surgery; J69.0 Pneumonitis due to inhalation of food and vomit; I50.32 Chronic diastolic (congestive) heart failure; D63.8 Anemia in other chronic diseases classified elsewhere; E11.9 Type 2 diabetes mellitus without complications; I65.01 Occlusion and stenosis of right vertebral artery; E87.5 Hyperkalemia; I11.0 Hypertensive heart disease with heart failure; E78.00 Pure hypercholesterolemia, unspecified; E87.6 Hypokalemia; I65.22 Occlusion and stenosis of left carotid artery; Z79.82 Long term (current) use of aspirin; Z95.5 Presence of coronary angioplasty implant and graft; Z79.899 Other long term (current) drug therapy; R13.19 Other dysphagia
CPT/HCPCS: 36223; 36415; 70553; 71045; 74230; 80048; 80053; 80061; 81001; 82306; 82330; 82435; 82607; 82803; 82947; 82948; 83036; 83605; 83735; 83880; 84100; 84132; 84295; 85018; 85025; 85027; 85347; 85610; 85730; 86850; 86900; 86901; 86923; 87641; 92526; 92610; 92611; 93005; 93308; 93312; 93325; 93458; 93880; 94002; 94003; 94150; 94640; 94664; 99156; 99157; A4450; A4606; A7048; C1760; C1894; G0378; J0171; J0282; J0690; J1644; J1650; J1815; J1940; J2003; J2250; J2405; J2440; J2543; J2704; J2720; J3010; J3475; J3480; J3490; J7030; J7040; J7120; P9045; Q9967; A4215; A4216; A4221; A4222; A4223; A4649; A4663; A4930; A6204; A9575; C1713; C1776; C1781; Q9965